=== PATIENT | female | born 2005 | race Two or more races ===

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

== ENCOUNTER 2023-07-25 16:58 | Inpatient (IN) | payer MEDICAID ==
[2023-07-25] VITALS (8 sets, daily range): BP systolic 124–132; BP diastolic 67–73; PULSE 145–149; RESP 20–24; TEMP 98.2–98.6; O2SAT 95–100
[~2023-07-25] VITALS: Ht 165.1 cm; Wt 46.1 kg
[2023-07-25] MEDS ORDERED: SODIUM CHLORIDE 0.9% 2,000 ML IV ONE (17:30)
[2023-07-25 18:18] LABS: Basophils # (auto) 0.1 10 ^3/uL (0-0.2); Basophils % (auto) 0.5 % (0.0-2.0); Eosinophils # (auto) 0.1 10 ^3/uL (0-0.8); Eosinophils % (auto) 0.5 % (0.0-7.0); Hematocrit 51.7 % (36.0-46.0); Hemoglobin 16.7 g/dL (12.2-16.2); Lymphocytes # (auto) 1.4 10 ^3/uL (0.4-5.4); Lymphocytes % (auto) 9.3 % (10.0-50.0); Mean Corpuscular Hemoglobin 32.2 pg (28.0-32.0); Mean Corpuscular Hgb Conc. 32.4 g/dL (32.0-36.0); Mean Corpuscular Volume 99.4 fL (80.0-100.0); Monocytes # (auto) 1.1 10 ^3/uL (0-1.3); Neutrophils # (auto) 12.7 10 ^3/uL (1.6-8.6); Neutrophils % (auto) 82.7 % (37.0-80.0); Nucleated Red Blood Cells % 0.1 %; Red Cell Distribution Width 14.5 % (11.8-14.3); White Blood Cell 15.3 10^3/uL (4.4-10.8)
[2023-07-25 18:48] LABS: Alanine Aminotransferase 13 U/L (7-40); Albumin 5.4 g/dL (3.2-4.8); Alkaline Phosphatase 150 U/L (46-116); Anion Gap 26.00001 (5-15); Aspartate Aminotransferase 16 U/L (13-40); Bilirubin, Total 0.3 mg/dL (0.2-1.0); Blood Urea Nitrogen 7 mg/dL (9-23); Chloride 95 mmol/L (98-107); Potassium 4.9 mmol/L (3.5-5.1); Sodium 131 mmol/L (136-145)
[2023-07-25 19:09] LABS: Carbon Dioxide < 10 mmol/L (20-30); Glucose 713 mg/dL (74-106)
[2023-07-25 19:14] LABS: Lipase 23 U/L (12-53); Magnesium 2.8 mg/dL (1.6-2.6)
[2023-07-25 19:45] LABS: Urine Bacteria NONE SEEN /hpf (None Seen); Urine Blood Negative /uL (Negative); Urine Clarity Clear (Clear); Urine Color Colorless (Yellow); Urine Protein, UAD TRACE (Negative); Urine Specific Gravity 1.032 (1.001-1.035); Urine Urobilinogen Normal (Negative); Urine WBC 1 /hpf (0 - 5)
[2023-07-25] MEDS ORDERED: DEXTROSE (50%) 50ML SYRG IV PRN (20:00)
[2023-07-25] MEDS ORDERED: cefTRIAXone 1GM/50ML D5W 50 ML IV ONE (20:00)
[2023-07-25] MEDS ORDERED: INSULIN LANTUS (GLARGINE) 1 /0.01ml (100units/ml) SC ONE (20:00)
[2023-07-25] MEDS: SODIUM CHLORIDE 0.9% 1,000 ML IV SCH ×2 (20:32→22:40)
[2023-07-25] MEDS: INSULIN DRIP 100 UNIT/100ML 100 ML IV SCH (20:42)
[2023-07-25] MEDS ORDERED: SODIUM BICARBONATE 8.4 % INJ 50ML VIAL IV ONE ×2 (20:45→23:00)
[2023-07-25 20:55] LABS: Magnesium 2.7 mg/dL (1.6-2.6)
[2023-07-25 20:57] LABS: Phosphorus 6.8 mg/dL (2.4-5.1)
[2023-07-25] MEDS ORDERED: MORPHINE SULFATE INJ 2 MG/ml SYRG IV PRN (21:00)
[2023-07-25] MEDS ORDERED: ONDANSETRON HCL 4 MG/2 ML VIAL IV PRN (21:00)
[2023-07-25] MEDS ORDERED: NITROGLYCERIN 0.4 MG SL TAB SL PRN (21:00)
[2023-07-25] MEDS ORDERED: ALBUTEROL MEDNEB 2.5 mg/3ml NEB NEB PRN (21:30)
[2023-07-25] MEDS ORDERED: IPRATROPIUM BROM 0.5 MG/2.5ML INH SOL NEB PRN (21:30)
[2023-07-25 22:02] LABS: Chloride 101 mmol/L (98-107); Potassium 5.2 mmol/L (3.5-5.1); Sodium 136 mmol/L (136-145)
[2023-07-25 22:03] LABS: Anion Gap 25.00001 (5-15)
[2023-07-25 22:08] LABS: BUN/Creatinine Ratio 5.3 (10.0-20.0); Blood Urea Nitrogen 9 mg/dL (9-23)
[2023-07-25] MEDS: ACCU-CHEK COMFORT CURVE STRIP VI SCH ×2 (22:09→22:39)
[2023-07-25 22:31] LABS: Carbon Dioxide < 10 mmol/L (20-30)
[2023-07-25 22:55] LABS: Glucose 675 mg/dL (74-106)
[2023-07-26] VITALS (29 sets, daily range): BP systolic 104–132; BP diastolic 68–92; PULSE 105–140; RESP 12–24; TEMP 98.4–99.1; O2SAT 96–100
[2023-07-26] MEDS: ACCU-CHEK COMFORT CURVE STRIP VI SCH ×15 (00:16→20:00)
[2023-07-26] MEDS ORDERED: SODIUM CHLORIDE 0.9% 1,000 ML IV SCH (01:00)
[2023-07-26 02:22] LABS: Base Excess -13.9 mmol/L (-2.0-2.0)
[2023-07-26] MEDS: SODIUM CHLORIDE 0.9% 1,000 ML IV SCH ×2 (03:00→09:40)
[2023-07-26 03:15] LABS: Hematocrit 46.5 % (36.0-46.0); Hemoglobin 14.9 g/dL (12.2-16.2); Mean Corpuscular Hemoglobin 30.3 pg (28.0-32.0); Mean Corpuscular Volume 94.7 fL (80.0-100.0); Red Blood Cells 4.91 10^6/uL (4.0-5.20); Red Cell Distribution Width 14.4 % (11.8-14.3); White Blood Cell 28.5 10^3/uL (4.4-10.8)
[2023-07-26 03:30] LABS: Alanine Aminotransferase 13 U/L (7-40); Albumin 4.8 g/dL (3.2-4.8); Alkaline Phosphatase 135 U/L (46-116); Anion Gap 23 (5-15); Aspartate Aminotransferase 10 U/L (13-40); BUN/Creatinine Ratio 5.3 (10.0-20.0); Bilirubin, Total 0.3 mg/dL (0.2-1.0); Blood Urea Nitrogen 7 mg/dL (9-23); Calcium 8.7 mg/dL (8.7-10.4); Carbon Dioxide 12 mmol/L (20-30); Potassium 3.9 mmol/L (3.5-5.1); Total Protein 7.9 g/dL (5.7-8.2)
[2023-07-26 04:06] LABS: Chloride 118 mmol/L (98-107); Sodium 153 mmol/L (136-145)
[2023-07-26 04:16] LABS: Basophils % (manual) 0 (0.0-2.0); Blast Cells 0; Eosinophils % (manual) 0 (0-7); Metamyelocytes % 0; Myelocytes % 0; Promyelocytes % 0; Reactive Lymphocytes 0
[2023-07-26 04:54] LABS: Glucose 213 mg/dL (74-106)
[2023-07-26 06:40] LABS: Band Neutrophils % (manual) 4; Lymphocytes % (manual) 8 (10.0-50.0); Monocytes % (manual) 10 (0-12); Platelet Estimate Increased
[2023-07-26 06:40] LABS: Chloride 122 mmol/L (98-107); Potassium 3.7 mmol/L (3.5-5.1); Sodium 153 mmol/L (136-145)
[2023-07-26 06:41] LABS: Anion Gap 18 (5-15); Carbon Dioxide 13 mmol/L (20-30)
[2023-07-26 06:42] LABS: Calcium 8.9 mg/dL (8.5-10.1)
[2023-07-26 06:45] LABS: BUN/Creatinine Ratio 10.7 (10.0-20.0); Blood Urea Nitrogen 13 mg/dL (9-23)
[2023-07-26 06:46] LABS: Glucose 195 mg/dL (74-106)
[2023-07-26] MEDS: PANTOPRAZOLE 40 MG/10 ML VIAL INJ IV SCH (11:05)
[2023-07-26] MEDS: SOD CHL 0.45% WITH 20MEQ KCL 1,000 ML IV SCH ×2 (12:37→18:25)
[2023-07-26] MEDS: INSULIN DRIP 100 UNIT/100ML 100 ML IV SCH (15:52)
[2023-07-26 16:40] LABS: Chloride 120 mmol/L (98-107); Potassium 3.7 mmol/L (3.5-5.1); Sodium 153 mmol/L (136-145)
[2023-07-26 16:41] LABS: Anion Gap 15 (5-15); Carbon Dioxide 18 mmol/L (20-30)
[2023-07-26 16:46] LABS: BUN/Creatinine Ratio 11.5 (10.0-20.0); Blood Urea Nitrogen 13 mg/dL (9-23); Glucose 167 mg/dL (74-106)
[2023-07-26] MEDS: InsuLIN REG 1unit/0.01ml Soln (100units/ml) SC SCH (20:00)
[2023-07-26] MEDS ORDERED: DEXTROSE (50%) 50ML SYRG IV PRN (20:00)
[2023-07-26 20:51] LABS: Chloride 119 mmol/L (98-107); Potassium 3.5 mmol/L (3.5-5.1); Sodium 149 mmol/L (136-145)
[2023-07-26 20:52] LABS: Anion Gap 12 (5-15); Calcium 8.8 mg/dL (8.5-10.1); Carbon Dioxide 18 mmol/L (20-30)
[2023-07-26 20:57] LABS: Blood Urea Nitrogen 12 mg/dL (9-23); Glucose 117 mg/dL (74-106)
[2023-07-27] VITALS (8 sets, daily range): BP systolic 118–131; BP diastolic 74–90; PULSE 76–152; RESP 16–21; TEMP 37; O2SAT 96–100
[2023-07-27] MEDS: InsuLIN REG 1unit/0.01ml Soln (100units/ml) SC SCH ×5 (01:10→16:23)
[2023-07-27] MEDS: ACCU-CHEK COMFORT CURVE STRIP VI SCH ×5 (01:12→16:02)
[2023-07-27 05:06] LABS: Basophils # (auto) 0.1 10 ^3/uL (0-0.2); Basophils % (auto) 0.5 % (0.0-2.0); Eosinophils # (auto) 0.1 10 ^3/uL (0-0.8); Eosinophils % (auto) 0.9 % (0.0-7.0); Hematocrit 38.5 % (36.0-46.0); Hemoglobin 12.8 g/dL (12.2-16.2); Lymphocytes # (auto) 1.5 10 ^3/uL (0.4-5.4); Lymphocytes % (auto) 10.8 % (10.0-50.0); Mean Corpuscular Hemoglobin 30.7 pg (28.0-32.0); Mean Corpuscular Hgb Conc. 33.3 g/dL (32.0-36.0); Monocytes # (auto) 1.1 10 ^3/uL (0-1.3); Monocytes % (auto) 8.2 % (0.0-12.0); Neutrophils % (auto) 79.6 % (37.0-80.0); Red Blood Cells 4.19 10^6/uL (4.0-5.20); Red Cell Distribution Width 14.8 % (11.8-14.3); White Blood Cell 13.7 10^3/uL (4.4-10.8)
[2023-07-27 05:18] LABS: Anion Gap 14 (5-15); Carbon Dioxide 17 mmol/L (20-30); Chloride 114 mmol/L (98-107); Potassium 3.6 mmol/L (3.5-5.1); Sodium 145 mmol/L (136-145)
[2023-07-27 05:19] LABS: Calcium 9.2 mg/dL (8.5-10.1)
[2023-07-27 05:24] LABS: BUN/Creatinine Ratio 12.2 (10.0-20.0); Blood Urea Nitrogen 12 mg/dL (9-23); Glucose 271 mg/dL (74-106)
[2023-07-27] MEDS: PANTOPRAZOLE 40 MG/10 ML VIAL INJ IV SCH (09:21)
[2023-07-27 13:39] LABS: Magnesium 2.1 mg/dL (1.6-2.6)
[2023-07-27] MEDS ORDERED: INSU1INJ19 SC (14:06)
== END 2023-07-27 16:45 | disposition home or self-care (01) | DRG 420 ==
LOC: ER 16:58 → TELE 21:05 → TELE-WESTW 07-26 23:07
PROVIDERS: ADMIT Nurse Practitioner Family; ATTEND Nurse Practitioner Acute Care
DX: E10.10 Type 1 diabetes mellitus with ketoacidosis without coma (principal); R64 Cachexia; R65.10 Systemic inflammatory response syndrome (SIRS) of non-infectious origin without acute organ dysfunction; E86.0 Dehydration; D72.829 Elevated white blood cell count, unspecified; J45.909 Unspecified asthma, uncomplicated; Z82.5 Family history of asthma and other chronic lower respiratory diseases; Z91.148 Patient's other noncompliance with medication regimen for other reason; Z68.1 Body mass index [BMI] 19.9 or less, adult
CPT/HCPCS: 36415; 36600; 71045; 80048; 80053; 81001; 82010; 82805; 82962; 83036; 83690; 83735; 83930; 84100; 84702; 85007; 85025; 85027; 87040; 87081; 93005; 99291; C9113; G0378; J0696; J1815; J2405

== ENCOUNTER 2023-09-29 21:29 | Inpatient (IN) | payer MEDICAID ==
[~2023-09-29] VITALS: Ht 170.2 cm; Wt 53.7 kg
[~2023-09-29 21:29] MED LIST: INSU1INJ19 SC
[2023-09-29] MEDS ORDERED: SODIUM CHLORIDE 0.9% 1,000 ML IV ONE ×3 (22:00→22:45)
[2023-09-29 22:14] LABS: Basophils # (auto) 0.1 10 ^3/uL (0-0.2); Basophils % (auto) 0.3 % (0.0-2.0); Eosinophils # (auto) 0 10 ^3/uL (0-0.8); Mean Corpuscular Volume 100.4 fL (80.0-100.0); White Blood Cell 20.3 10^3/uL (4.4-10.8)
[2023-09-29 22:16] LABS: Eosinophils % (auto) 0.1 % (0.0-7.0); Hematocrit 52.1 % (36.0-46.0); Hemoglobin 15.9 g/dL (12.2-16.2); Lymphocytes # (auto) 1.9 10 ^3/uL (0.4-5.4); Lymphocytes % (auto) 9.4 % (10.0-50.0); Mean Corpuscular Hemoglobin 30.6 pg (28.0-32.0); Mean Corpuscular Hgb Conc. 30.5 g/dL (32.0-36.0); Monocytes % (auto) 9.9 % (0.0-12.0); Neutrophils # (auto) 16.3 10 ^3/uL (1.6-8.6); Neutrophils % (auto) 80.3 % (37.0-80.0); Red Blood Cells 5.19 10^6/uL (4.0-5.20); Red Cell Distribution Width 15.4 % (11.8-14.3)
[2023-09-29 22:34] LABS: Alanine Aminotransferase 12 U/L (7-40); Albumin 4.5 g/dL (3.2-4.8); Alkaline Phosphatase 150 U/L (46-116); Anion Gap 19.00001 (5-15); Aspartate Aminotransferase 14 U/L (13-40); BUN/Creatinine Ratio 5.1 (10.0-20.0); Bilirubin, Total 0.2 mg/dL (0.2-1.0); Blood Urea Nitrogen 7 mg/dL (9-23); Calcium 8.5 mg/dL (8.7-10.4); Chloride 106 mmol/L (98-107); Potassium 4.7 mmol/L (3.5-5.1); Sodium 135 mmol/L (136-145); Total Protein 8.1 g/dL (5.7-8.2)
[2023-09-29 22:40] LABS: Carbon Dioxide < 10 mmol/L (20-30); Glucose 506 mg/dL (74-106)
[2023-09-29] MEDS ORDERED: INSULIN LANTUS (GLARGINE) 1 /0.01ml (100units/ml) SC ONE ×2 (22:45→23:00)
[2023-09-29] MEDS ORDERED: INSULIN DRIP 100 UNIT/100ML 100 ML IV SCH ×2 (22:45→23:00)
[2023-09-29] MEDS ORDERED: DEXTROSE (50%) 50ML SYRG IV PRN ×2 (22:45→23:00)
[2023-09-29] MEDS ORDERED: InsuLIN REG 1unit/0.01ml Soln (100units/ml) ONE (23:43)
[2023-09-29 23:45] VITALS: O2SAT 100
[2023-09-30] MEDS ORDERED: cefTRIAXone 1GM/50ML D5W 50 ML IV ONE
[2023-09-30] MEDS ORDERED: ACCU-CHEK COMFORT CURVE STRIP VI SCH
[2023-09-30] MEDS ORDERED: ONDANSETRON HCL 4 MG/2 ML VIAL IV PRN (01:00)
[2023-09-30] MEDS ORDERED: SODIUM CHLORIDE 0.9% 1,000 ML IV SCH (01:00)
[2023-09-30] MEDS ORDERED: HYDROcodone-ACET 5/325MG TAB PO PRN (01:00)
[2023-09-30] MEDS ORDERED: DOCUSATE SOD 100 MG CAP PO PRN (01:00)
[2023-09-30] MEDS ORDERED: ACETAMINOPHEN 325 MG TAB PO PRN (01:00)
[2023-09-30] MEDS ORDERED: MORPHINE SULFATE INJ 2 MG/ml SYRG IV PRN (01:00)
[2023-09-30] MEDS ORDERED: NITROGLYCERIN 0.4 MG SL TAB SL PRN (01:00)
[2023-09-30] MEDS: ACCU-CHEK COMFORT CURVE STRIP VI SCH ×13 (01:57→21:54)
[2023-09-30] MEDS ORDERED: D5W 5% 1,000 ML IV ONE (04:00)
[2023-09-30 04:52] LABS: Potassium 3.6 mmol/L (3.5-5.1)
[2023-09-30 04:53] LABS: Anion Gap 16.00001 (5-15)
[2023-09-30 04:54] LABS: Calcium 7.6 mg/dL (8.7-10.4)
[2023-09-30 04:58] LABS: Glucose 136 mg/dL (74-106)
[2023-09-30 04:59] LABS: BUN/Creatinine Ratio 7.8 (10.0-20.0); Blood Urea Nitrogen 7 mg/dL (9-23); Chloride 120 mmol/L (98-107); Sodium 146 mmol/L (136-145)
[2023-09-30 05:01] LABS: Carbon Dioxide < 10 mmol/L (20-30)
[2023-09-30] MEDS ORDERED: SODIUM BICARBONATE 8.4 % INJ 50ML VIAL IV ONE (05:30)
[2023-09-30 07:47] VITALS: PULSE 99; RESP 10; O2SAT 98
[2023-09-30] MEDS ORDERED: INSULIN LANTUS (GLARGINE) 1 /0.01ml (100units/ml) SC SCH ×2 (10:00→22:00)
[2023-09-30] MEDS: ENOXAPARIN SOD 40 MG/0.4 ML SYRINGE SC SCH (10:15)
[2023-09-30] MEDS: D5W/SOD CHL 0.45%/KCL 20MEQ 1,000 ML IV SCH ×2 (11:50→14:24)
[2023-09-30 14:32] LABS: Chloride 116 mmol/L (98-107); Potassium 2.9 mmol/L (3.5-5.1); Sodium 146 mmol/L (136-145)
[2023-09-30 14:33] LABS: Anion Gap 10 (5-15); Calcium 7.4 mg/dL (8.7-10.4); Carbon Dioxide 20 mmol/L (20-30)
[2023-09-30 14:38] LABS: BUN/Creatinine Ratio 16.7 (10.0-20.0); Blood Urea Nitrogen 12 mg/dL (9-23); Glucose 91 mg/dL (74-106)
[2023-09-30 14:39] LABS: Magnesium 1.6 mg/dL (1.6-2.6)
[2023-09-30 14:40] LABS: Phosphorus 1.3 mg/dL (2.4-5.1)
[2023-09-30] MEDS ORDERED: DEXTROSE (50%) 50ML SYRG IV PRN (17:15)
[2023-09-30] MEDS: SOD CHL 0.45% WITH 20MEQ KCL 1,000 ML IV SCH (17:30)
[2023-09-30 20:00] VITALS: PULSE 107; RESP 12; O2SAT 100
[2023-09-30] MEDS ORDERED: cefTRIAXone 1GM/50ML D5W 50 ML IV SCH (21:00)
[2023-09-30] MEDS: InsuLIN REG 1unit/0.01ml Soln (100units/ml) SC SCH (22:01)
[2023-10-01] VITALS (8 sets, daily range): BP systolic 97–143; BP diastolic 44–88; PULSE 69–100; RESP 16–20; TEMP 98–98.4; O2SAT 95–100
[2023-10-01] MEDS: SOD CHL 0.45% WITH 20MEQ KCL 1,000 ML IV SCH ×2 (02:35→09:34)
[2023-10-01] MEDS: ACCU-CHEK COMFORT CURVE STRIP VI SCH ×2 (06:14→12:38)
[2023-10-01] MEDS: InsuLIN REG 1unit/0.01ml Soln (100units/ml) SC SCH ×2 (07:00→12:36)
[2023-10-01 07:27] LABS: Basophils # (auto) 0 10 ^3/uL (0-0.2); Eosinophils # (auto) 0.1 10 ^3/uL (0-0.8); Lymphocytes # (auto) 1.7 10 ^3/uL (0.4-5.4); Lymphocytes % (auto) 19.7 % (10.0-50.0); Monocytes # (auto) 1.3 10 ^3/uL (0-1.3); Nucleated Red Blood Cells % 0.1 %
[2023-10-01 07:30] LABS: Basophils % (auto) 0.4 % (0.0-2.0); Hematocrit 35.5 % (36.0-46.0); Mean Corpuscular Hgb Conc. 33.7 g/dL (32.0-36.0); Monocytes % (auto) 15.2 % (0.0-12.0); Neutrophils # (auto) 5.4 10 ^3/uL (1.6-8.6); Neutrophils % (auto) 63.7 % (37.0-80.0); Red Blood Cells 3.86 10^6/uL (4.0-5.20); Red Cell Distribution Width 14.4 % (11.8-14.3); White Blood Cell 8.5 10^3/uL (4.4-10.8)
[2023-10-01 07:36] LABS: Albumin 3.2 g/dL (3.2-4.8); Alkaline Phosphatase 93 U/L (46-116); Anion Gap 7 (5-15); Aspartate Aminotransferase 13 U/L (13-40); Bilirubin, Total 0.2 mg/dL (0.2-1.0); Blood Urea Nitrogen 6 mg/dL (9-23); Calcium 7.9 mg/dL (8.7-10.4); Carbon Dioxide 22 mmol/L (20-30); Chloride 112 mmol/L (98-107); Glucose 59 mg/dL (74-106); Potassium 2.9 mmol/L (3.5-5.1); Sodium 141 mmol/L (136-145); Total Protein 5.6 g/dL (5.7-8.2)
[2023-10-01 07:39] LABS: Alanine Aminotransferase < 9 U/L (7-40)
[2023-10-01] MEDS ORDERED: MAGNESIUM OXIDE 400 MG TAB PO ONE (08:30)
[2023-10-01] MEDS ORDERED: POTASSIUM PHOSPHATE 44 MEQ in D5W 5% 250 ML IV ONE (08:30)
[2023-10-01 09:17] LABS: Urine Bacteria FEW /hpf (None Seen); Urine Blood 3+ /uL (Negative); Urine Clarity HAZY (Clear); Urine Color Colorless (Yellow); Urine Protein, UAD Negative (Negative); Urine Specific Gravity 1.006 (1.001-1.035); Urine Urobilinogen Normal (Negative); Urine WBC 9 /hpf (0 - 5); Urine pH 5.5 (5.0-8.0)
[2023-10-01] MEDS: ENOXAPARIN SOD 40 MG/0.4 ML SYRINGE SC SCH (09:34)
[2023-10-01 14:21] LABS: Potassium 3.3 mmol/L (3.5-5.1)
[2023-10-01 14:28] LABS: Magnesium 1.7 mg/dL (1.6-2.6)
[2023-10-01] MEDS ORDERED: POTASSIUM EFFERVESENT TAB 25 MEQ PO ONE (15:30)
== END 2023-10-01 16:55 | disposition home or self-care (01) | DRG 420 ==
LOC: ER 21:29 → TELE-EAST 09-30 00:59 → TELE 09-30 00:59 → TELE-EAST 09-30 23:40
PROVIDERS: ADMIT Nurse Practitioner Family; ATTEND Nurse Practitioner Family
DX: E11.10 Type 2 diabetes mellitus with ketoacidosis without coma (principal); N17.0 Acute kidney failure with tubular necrosis; R64 Cachexia; R65.10 Systemic inflammatory response syndrome (SIRS) of non-infectious origin without acute organ dysfunction; E87.6 Hypokalemia; D75.839 Thrombocytosis, unspecified; Z68.1 Body mass index [BMI] 19.9 or less, adult; Z82.5 Family history of asthma and other chronic lower respiratory diseases
CPT/HCPCS: 36415; 36600; 71045; 80048; 80053; 81001; 82010; 82805; 82962; 83036; 83735; 84100; 84132; 84702; 85025; G0378; J1815; J7060

== ENCOUNTER 2023-10-28 12:31 | Inpatient (IN) | payer MEDICAID ==
[~2023-10-28] VITALS: Ht 170.2 cm; Wt 49.0 kg
[2023-10-28 13:10] VITALS: PULSE 128; RESP 22; O2SAT 99
[2023-10-28] MEDS: SODIUM BICARB 8.4% 50Meq/50ml SYR Vial IV ONE ×2 (13:47→16:08)
[2023-10-28] MEDS: SODIUM CHLORIDE 0.9% 3,000 ML IV ONE (13:47)
[2023-10-28] MEDS ORDERED: SODIUM CHLORIDE 0.9% 1,000 ML IVB ONE (14:00)
[2023-10-28 14:11] LABS: Red Blood Cells 4.48 10^6/uL (4.0-5.20)
[2023-10-28 14:12] LABS: Hematocrit 46.7 % (36.0-46.0); Hemoglobin 14.2 g/dL (12.2-16.2); Mean Corpuscular Hemoglobin 31.7 pg (28.0-32.0); Mean Corpuscular Hgb Conc. 30.3 g/dL (32.0-36.0); Mean Corpuscular Volume 104.3 fL (80.0-100.0); Red Cell Distribution Width 16.8 % (11.8-14.3)
[2023-10-28 14:24] LABS: White Blood Cell 32.1 10^3/uL (4.4-10.8)
[2023-10-28 14:25] LABS: Basophils % (manual) 0 (0.0-2.0); Blast Cells 0; Eosinophils % (manual) 0 (0-7); Metamyelocytes % 0; Myelocytes % 0; Promyelocytes % 0; Reactive Lymphocytes 0
[2023-10-28 14:30] LABS: Alanine Aminotransferase 13 U/L (7-40); Albumin 4.4 g/dL (3.2-4.8); Alkaline Phosphatase 183 U/L (46-116); Anion Gap 18.00001 (5-15); Aspartate Aminotransferase 13 U/L (13-40); BUN/Creatinine Ratio 7.8 (10.0-20.0); Blood Urea Nitrogen 10 mg/dL (9-23); Calcium 8.5 mg/dL (8.7-10.4); Chloride 107 mmol/L (98-107); Lipase 21 U/L (12-53); Magnesium 2.3 mg/dL (1.6-2.6); Potassium 4.6 mmol/L (3.5-5.1); Sodium 135 mmol/L (136-145); Total Protein 7.7 g/dL (5.7-8.2)
[2023-10-28 14:31] LABS: Bilirubin, Total 0.2 mg/dL (0.2-1.0)
[2023-10-28 14:45] LABS: Carbon Dioxide < 10 mmol/L (20-30); Glucose 568 mg/dL (74-106)
[2023-10-28 14:49] LABS: Band Neutrophils % (manual) 13; Lymphocytes % (manual) 7 (10.0-50.0); Monocytes % (manual) 3 (0-12)
[2023-10-28 14:50] LABS: Platelet Estimate Increased
[2023-10-28 15:07] LABS: Urine Bacteria FEW /hpf (None Seen); Urine Blood 1+ /uL (Negative); Urine Clarity Clear (Clear); Urine Color Colorless (Yellow); Urine Mucus FEW (None Seen); Urine Protein, UAD 1+ (Negative); Urine Specific Gravity 1.022 (1.001-1.035); Urine Urobilinogen Normal (Negative); Urine WBC 1 /hpf (0 - 5); Urine pH 5.5 (5.0-8.0)
[2023-10-28] MEDS ORDERED: DEXTROSE (50%) 50ML SYRG IV PRN ×2 (16:00→17:15)
[2023-10-28] MEDS: InsuLIN REG 1unit/0.01ml Soln (100units/ml) IV ONE (16:03)
[2023-10-28] MEDS: ONDANSETRON HCL 4 MG/2 ML VIAL IV ONE (16:08)
[2023-10-28 16:50] LABS: Chloride 115 mmol/L (98-107); Potassium 4.6 mmol/L (3.5-5.1); Sodium 143 mmol/L (136-145)
[2023-10-28 16:51] LABS: Anion Gap 18.00001 (5-15); Calcium 6.9 mg/dL (8.5-10.1)
[2023-10-28 16:56] LABS: BUN/Creatinine Ratio 9.2 (10.0-20.0); Blood Urea Nitrogen 10 mg/dL (9-23)
[2023-10-28] MEDS: SODIUM CHLORIDE 0.9% IV ONE (16:56)
[2023-10-28] MEDS: SODIUM BICARB IV ONE (16:56)
[2023-10-28] MEDS: ACCU-CHEK COMFORT CURVE STRIP VI SCH ×2 (17:00→18:46)
[2023-10-28 17:02] LABS: Carbon Dioxide < 10 mmol/L (20-30); Glucose 431 mg/dL (74-106)
[2023-10-28] MEDS: INSULIN DRIP 100 UNIT/100ML 100 ML IV SCH (17:10)
[2023-10-28] MEDS ORDERED: DOCUSATE SOD 100 MG CAP PO PRN (17:15)
[2023-10-28] MEDS ORDERED: MORPHINE SULFATE INJ 2 MG/ml SYRG IV PRN (17:15)
[2023-10-28] MEDS ORDERED: SODIUM CHLORIDE 0.9% 1,000 ML IV SCH ×3 (17:15→23:15)
[2023-10-28] MEDS ORDERED: ONDANSETRON HCL 4 MG/2 ML VIAL IV PRN (17:15)
[2023-10-28] MEDS: cefTRIAXone 1GM/50ML D5W 50 ML IV ONE (17:43)
[2023-10-28] MEDS: INSULIN LANTUS (GLARGINE) 1 /0.01ml (100units/ml) SC ONE (17:43)
[2023-10-28] MEDS: SOD CHL 0.45% 1,000 ML IV SCH (17:46)
[2023-10-28 18:07] LABS: Chloride 116 mmol/L (98-107); Potassium 4.2 mmol/L (3.5-5.1); Sodium 144 mmol/L (136-145)
[2023-10-28 18:08] LABS: Anion Gap 18.00001 (5-15); Calcium 7.2 mg/dL (8.7-10.4)
[2023-10-28 18:13] LABS: Blood Urea Nitrogen 9 mg/dL (9-23); Glucose 345 mg/dL (74-106)
[2023-10-28 18:14] LABS: Magnesium 1.9 mg/dL (1.6-2.6)
[2023-10-28 18:37] LABS: Carbon Dioxide < 10 mmol/L (20-30)
[2023-10-28] MEDS: CALCIUM GLUC 1,000mg/50ml-NS 50 ML IV ONE (18:42)
[2023-10-28] MEDS: D5W/SOD CHL 0.45% 1,000 ML IV SCH (19:08)
[2023-10-28 19:30] VITALS: PULSE 109; RESP 18; O2SAT 99
[2023-10-28 21:40] VITALS: BP 122/76; PULSE 105; RESP 13; TEMP 98.1; O2SAT 100
[2023-10-28 21:55] LABS: Chloride 118 mmol/L (98-107); Potassium 3.2 mmol/L (3.5-5.1); Sodium 145 mmol/L (136-145)
[2023-10-28 21:56] LABS: Anion Gap 17.00001 (5-15)
[2023-10-28 21:57] LABS: Calcium 7.2 mg/dL (8.5-10.1)
[2023-10-28 22:00] VITALS: BP 119/79; PULSE 101; RESP 11; O2SAT 100
[2023-10-28 22:02] LABS: BUN/Creatinine Ratio 9.5 (10.0-20.0); Blood Urea Nitrogen 8 mg/dL (9-23); Glucose 134 mg/dL (74-106)
[2023-10-28 22:04] LABS: Carbon Dioxide < 10 mmol/L (20-30)
[2023-10-28 23:00] VITALS: BP 121/81; PULSE 101; RESP 11; O2SAT 100
[2023-10-28] MEDS ORDERED: SOD CHL 0.45% 1,000 ML IV SCH (23:15)
[2023-10-29] VITALS (18 sets, daily range): BP systolic 105–121; BP diastolic 61–80; PULSE 85–120; RESP 10–24; TEMP 98.2–98.6; O2SAT 96–100
[2023-10-29 00:41] LABS: Chloride 116 mmol/L (98-107); Sodium 145 mmol/L (136-145)
[2023-10-29 00:42] LABS: Calcium 7.6 mg/dL (8.7-10.4); Carbon Dioxide 15 mmol/L (20-30)
[2023-10-29 00:47] LABS: BUN/Creatinine Ratio 11.1 (10.0-20.0); Blood Urea Nitrogen 9 mg/dL (9-23); Glucose 132 mg/dL (74-106)
[2023-10-29 01:01] LABS: Anion Gap 14 (5-15)
[2023-10-29] MEDS ORDERED: POTASSIUM CHL 20MEQ/100ML 100 ML IV SCH (01:15)
[2023-10-29] MEDS: POTASSIUM CHL 20MEQ/100ML 100 ML IV SCH (01:37)
[2023-10-29 06:09] LABS: Hematocrit 35.7 % (36.0-46.0); Mean Corpuscular Hemoglobin 30.8 pg (28.0-32.0); Mean Corpuscular Hgb Conc. 33.6 g/dL (32.0-36.0); Mean Corpuscular Volume 91.9 fL (80.0-100.0); Red Blood Cells 3.88 10^6/uL (4.0-5.20); Red Cell Distribution Width 15.6 % (11.8-14.3); White Blood Cell 16.1 10^3/uL (4.4-10.8)
[2023-10-29 06:44] LABS: Basophils % (manual) 0 (0.0-2.0); Blast Cells 0; Eosinophils % (manual) 0 (0-7); Reactive Lymphocytes 0
[2023-10-29 07:16] LABS: Alanine Aminotransferase 10 U/L (7-40); Albumin 3.2 g/dL (3.2-4.8); Alkaline Phosphatase 96 U/L (46-116); Anion Gap 10 (5-15); Aspartate Aminotransferase 9 U/L (13-40); BUN/Creatinine Ratio 14.7 (10.0-20.0); Bilirubin, Total 0.2 mg/dL (0.2-1.0); Blood Urea Nitrogen 10 mg/dL (9-23); Calcium 7.1 mg/dL (8.7-10.4); Carbon Dioxide 19 mmol/L (20-30); Chloride 116 mmol/L (98-107); Glucose 162 mg/dL (74-106); Sodium 145 mmol/L (136-145)
[2023-10-29 07:17] LABS: Total Protein 5.5 g/dL (5.7-8.2)
[2023-10-29] MEDS: cefTRIAXone 1GM/50ML D5W 50 ML IV SCH (07:23)
[2023-10-29] MEDS: INSULIN LANTUS (GLARGINE) 1 /0.01ml (100units/ml) SC SCH (07:30)
[2023-10-29 08:10] LABS: Band Neutrophils % (manual) 8; Lymphocytes % (manual) 7 (10.0-50.0); Metamyelocytes % 1; Monocytes % (manual) 8 (0-12); Myelocytes % 1; Promyelocytes % 2
[2023-10-29 08:11] LABS: Toxic Granulation Slight
[2023-10-29 08:12] LABS: Platelet Estimate Adequate
[2023-10-29] MEDS: POTASSIUM CHL 20 Meq TABLET PO ONE (10:14)
[2023-10-29 12:40] LABS: Chloride 114 mmol/L (98-107); Potassium 2.8 mmol/L (3.5-5.1); Sodium 140 mmol/L (136-145)
[2023-10-29 12:41] LABS: Anion Gap 7 (5-15); Calcium 7.3 mg/dL (8.7-10.4); Carbon Dioxide 19 mmol/L (20-30)
[2023-10-29 12:46] LABS: BUN/Creatinine Ratio 13.2 (10.0-20.0); Blood Urea Nitrogen 7 mg/dL (9-23); Glucose 104 mg/dL (74-106)
[2023-10-29] MEDS: POTASSIUM EFFERVESENT TAB 25 MEQ PO ONE (14:08)
[2023-10-29] MEDS: INSULIN LANTUS (GLARGINE) 1 /0.01ml (100units/ml) SC ONE (16:10)
[2023-10-29] MEDS ORDERED: DEXTROSE (50%) 50ML SYRG IV PRN (16:45)
[2023-10-29] MEDS: ACCU-CHEK COMFORT CURVE STRIP VI SCH (17:53)
[2023-10-29] MEDS: InsuLIN REG 1unit/0.01ml Soln (100units/ml) SC SCH (17:59)
[2023-10-29 18:42] LABS: Chloride 110 mmol/L (98-107); Sodium 142 mmol/L (136-145)
[2023-10-29 18:43] LABS: Anion Gap 9 (5-15); Carbon Dioxide 23 mmol/L (20-30)
[2023-10-29 18:44] LABS: Calcium 7.9 mg/dL (8.5-10.1)
[2023-10-29 18:48] LABS: BUN/Creatinine Ratio 16.3 (10.0-20.0); Blood Urea Nitrogen 8 mg/dL (9-23); Glucose 59 mg/dL (74-106)
[2023-10-30] VITALS (19 sets, daily range): BP systolic 96–120; BP diastolic 55–75; PULSE 77–118; RESP 12–28; TEMP 97.2–98.5; O2SAT 96–98
[2023-10-30 04:43] LABS: Hematocrit 33.5 % (36.0-46.0); Hemoglobin 11.4 g/dL (12.2-16.2); Mean Corpuscular Hemoglobin 31.1 pg (28.0-32.0); Mean Corpuscular Volume 91.5 fL (80.0-100.0); Red Blood Cells 3.66 10^6/uL (4.0-5.20); White Blood Cell 6.4 10^3/uL (4.4-10.8)
[2023-10-30 04:51] LABS: Band Neutrophils % (manual) 0; Basophils % (manual) 0 (0.0-2.0); Blast Cells 0; Metamyelocytes % 0; Myelocytes % 0; Promyelocytes % 0; Reactive Lymphocytes 0
[2023-10-30 04:53] LABS: Chloride 111 mmol/L (98-107); Potassium 2.9 mmol/L (3.5-5.1); Sodium 143 mmol/L (136-145)
[2023-10-30 04:54] LABS: Anion Gap 5 (5-15); Calcium 8.1 mg/dL (8.7-10.4); Carbon Dioxide 27 mmol/L (20-30)
[2023-10-30 04:59] LABS: Glucose 74 mg/dL (74-106)
[2023-10-30 05:00] LABS: BUN/Creatinine Ratio 16.7 (10.0-20.0); Blood Urea Nitrogen 7 mg/dL (9-23); Magnesium 1.5 mg/dL (1.6-2.6)
[2023-10-30 05:27] LABS: Eosinophils % (manual) 3 (0-7); Lymphocytes % (manual) 19 (10.0-50.0); Monocytes % (manual) 14 (0-12); Platelet Estimate Adequate
[2023-10-30] MEDS: POTASSIUM CHL 20MEQ/100ML 100 ML IV SCH (08:00)
[2023-10-30] MEDS ORDERED: POTASSIUM CHLORIDE 40 MEQ, LIDOCAINE 1% (LOCAL ANESTH.) 4 ML in SODIUM CHL 0.9% 250 ML IV ONE (10:15)
[2023-10-30] MEDS: INSULIN LANTUS (GLARGINE) 1 /0.01ml (100units/ml) SC SCH (10:34)
[2023-10-30] MEDS: MAGNESIUM SULFATE 1GM/100ML 100 ML IV SCH (12:42)
[2023-10-30] MEDS: POTASSIUM CHL 20 Meq TABLET PO ONE (12:42)
[2023-10-30] MEDS ORDERED: POTASSIUM CHL 20 Meq TABLET PO ONE ×2 (14:00→15:00)
[2023-10-30] MEDS: POTASSIUM CHLORIDE 40 MEQ, LIDOCAINE 1% (LOCAL ANESTH.) 4 ML in SODIUM CHL 0.9% 250 ML IV ONE (14:52)
[2023-10-31 05:00] VITALS: BP 109/76; PULSE 76; RESP 17; TEMP 97; O2SAT 98
[2023-10-31 06:05] LABS: Anion Gap 4 (5-15); Carbon Dioxide 30 mmol/L (20-30); Chloride 106 mmol/L (98-107); Potassium 3.6 mmol/L (3.5-5.1); Sodium 140 mmol/L (136-145)
[2023-10-31 06:06] LABS: Calcium 8.6 mg/dL (8.7-10.4)
[2023-10-31 06:11] LABS: BUN/Creatinine Ratio 15.8 (10.0-20.0); Blood Urea Nitrogen 6 mg/dL (9-23); Glucose 96 mg/dL (74-106); Magnesium 1.8 mg/dL (1.6-2.6)
[2023-10-31 08:00] VITALS: PULSE 90; PULSE 91; RESP 17; O2SAT 100
[2023-10-31 08:30] VITALS: BP 112/74; PULSE 90; RESP 17; TEMP 97.4; O2SAT 100
[2023-10-31] MEDS ORDERED: INSU100I4 SC (11:39)
[2023-10-31] MEDS ORDERED: INSU1INJ19 SC (11:39)
[2023-10-31 12:31] VITALS: BP 126/90; PULSE 74; RESP 18; TEMP 97.6; O2SAT 100
[2023-10-31 12:43] VITALS: BP 126/90; PULSE 74; RESP 18; TEMP 97.8; O2SAT 100
== END 2023-10-31 14:08 | disposition home or self-care (01) | DRG 420 ==
LOC: EDBD 12:31 → ER 12:31 → EDUNIT# 12:31 → TELE 17:17 → DOU IN ICU 21:00 → TELE-WESTW 10-30 17:12
PROVIDERS: ADMIT Nurse Practitioner Family; ATTEND Internal Medicine
DX: E10.10 Type 1 diabetes mellitus with ketoacidosis without coma (principal); N17.0 Acute kidney failure with tubular necrosis; R65.10 Systemic inflammatory response syndrome (SIRS) of non-infectious origin without acute organ dysfunction; E83.51 Hypocalcemia; E86.0 Dehydration; Z20.822 Contact with and (suspected) exposure to COVID-19; R00.0 Tachycardia, unspecified; E87.6 Hypokalemia; Z79.4 Long term (current) use of insulin; Z82.5 Family history of asthma and other chronic lower respiratory diseases; Z91.148 Patient's other noncompliance with medication regimen for other reason; Z91.199 Patient's noncompliance with other medical treatment and regimen due to unspecified reason
CPT/HCPCS: 36415; 36600; 71045; 80048; 80053; 81001; 82010; 82805; 82962; 83605; 83690; 83735; 83930; 84100; 84702; 85007; 85027; 87040; 87081; 87086; 93005; 99291; G0378; J1815; J2001; J2405; J3480

== ENCOUNTER 2023-12-11 15:10 | Inpatient (IN) | payer MEDICAID ==
[~2023-12-11] VITALS: Ht 172.7 cm; Wt 57.6 kg
[~2023-12-11 15:10] MED LIST changes: +INSU100I4 SC
[2023-12-11 16:02] LABS: Urine Bacteria None Seen /hpf (None Seen)
[2023-12-11 16:14] LABS: Urine Blood Negative /uL (Negative); Urine Clarity Clear (Clear); Urine Color Colorless (Yellow); Urine Mucus FEW (None Seen); Urine Protein, UAD 1+ (Negative); Urine Specific Gravity 1.031 (1.001-1.035); Urine Urobilinogen Normal (Negative); Urine WBC <1 /hpf (0 - 5)
[2023-12-11 16:33] VITALS: PULSE 125; RESP 20; O2SAT 99
[2023-12-11 17:28] LABS: Hemoglobin 16.1 g/dL (12.2-16.2); Mean Corpuscular Hemoglobin 29.4 pg (28.0-32.0); Mean Corpuscular Hgb Conc. 30.4 g/dL (32.0-36.0); Red Blood Cells 5.47 10^6/uL (4.0-5.20); Red Cell Distribution Width 16.1 % (11.8-14.3)
[2023-12-11 17:31] LABS: Chloride 107 mmol/L (98-107); Potassium 5.2 mmol/L (3.5-5.1); Sodium 137 mmol/L (136-145); White Blood Cell 33.6 10^3/uL (4.4-10.8)
[2023-12-11 17:32] LABS: Anion Gap 20.00001 (5-15)
[2023-12-11 17:33] LABS: Basophils % (manual) 0 (0.0-2.0); Blast Cells 0; Calcium 9.9 mg/dL (8.5-10.1); Eosinophils % (manual) 0 (0-7); Myelocytes % 0; Promyelocytes % 0; Reactive Lymphocytes 0
[2023-12-11 17:38] LABS: BUN/Creatinine Ratio 7.2 (10.0-20.0); Blood Urea Nitrogen 11 mg/dL (9-23)
[2023-12-11 17:43] LABS: Carbon Dioxide < 10 mmol/L (20-30); Glucose 601 mg/dL (74-106)
[2023-12-11] MEDS ORDERED: DEXTROSE (50%) 50ML SYRG IV PRN (17:45)
[2023-12-11] MEDS: INSULIN LANTUS (GLARGINE) 1 /0.01ml (100units/ml) SC ONE (17:59)
[2023-12-11] MEDS: ACCU-CHEK COMFORT CURVE STRIP VI SCH ×2 (18:00→19:30)
[2023-12-11] MEDS: INSULIN DRIP 100 UNIT/100ML 100 ML IV SCH (18:04)
[2023-12-11 18:33] LABS: Lactic Acid w/Reflex 2.5 mmol/L (0.4-2.0)
[2023-12-11] MEDS ORDERED: ACETAMINOPHEN 325 MG TAB PO PRN (18:45)
[2023-12-11] MEDS ORDERED: POTASSIUM CHL 20MEQ/100ML 200 ML IV PRN (18:45)
[2023-12-11 18:48] LABS: Band Neutrophils % (manual) 4; Lymphocytes % (manual) 4 (10.0-50.0); Metamyelocytes % 1; Monocytes % (manual) 7 (0-12)
[2023-12-11 18:50] LABS: Anisocytosis Slight; Platelet Estimate Increased
[2023-12-11] MEDS: SODIUM CHLORIDE 0.9% 1,500 ML IV ONE (19:00)
[2023-12-11 19:33] LABS: Amphetamine Screen, Urine Neg (NEGATIVE); Barbiturate Scree,Urine Neg (NEGATIVE); Benzodiazephine Screen, Urine Neg (NEGATIVE); Cocaine Screen, Urine Neg (NEGATIVE); Opiate Scree,Urine Neg (NEGATIVE); Phencyclidine Screen, Urine Neg (NEGATIVE)
[2023-12-11 19:34] LABS: Cannabinoid Screen, Urine Neg (NEGATIVE)
[2023-12-11 19:35] VITALS: PULSE 130; RESP 15; O2SAT 98
[2023-12-11 20:03] LABS: Partial Thromboplastin Time 30.7 SEC (24.5-34.5); Prothrombin Time 10.5 sec (9.3-11.8)
[2023-12-11] MEDS: PIPERACILLIN-TAZOB 3.375GM 100 ML IV ONE (20:10)
[2023-12-11 20:21] LABS: Magnesium 2.7 mg/dL (1.6-2.6)
[2023-12-11 20:22] LABS: Phosphorus 3.8 mg/dL (2.4-5.1)
[2023-12-11] MEDS: SODIUM CHLORIDE 0.9% 1,000 ML IV SCH (20:30)
[2023-12-11 20:33] LABS: Blood Alcohol 8.3 mg/dL (<10)
[2023-12-11] MEDS: ONDANSETRON HCL 4 MG/2 ML VIAL IV ONE (20:43)
[2023-12-11] MEDS: HYDROmorphone HCL 2 MG/ML VL/or syr IV ONE (20:44)
[2023-12-11] MEDS ORDERED: MORPHINE SULFATE INJ 2 MG/ml SYRG IV PRN ×2 (22:15→22:30)
[2023-12-11] MEDS ORDERED: DOCUSATE SOD 100 MG CAP PO PRN ×2 (22:15→22:30)
[2023-12-11] MEDS ORDERED: ONDANSETRON HCL 4 MG/2 ML VIAL IV PRN ×2 (22:15→22:30)
[2023-12-11] MEDS ORDERED: NITROGLYCERIN 0.4 MG SL TAB SL PRN ×2 (22:15→22:30)
[2023-12-11] MEDS: VANCOMYCIN 1GM/200ML 200 ML IV ONE ×2 (23:08→23:15)
[2023-12-12] VITALS (7 sets, daily range): BP systolic 122–125; BP diastolic 77–78; PULSE 80–115; RESP 13–18; TEMP 98.1; O2SAT 95–100
[2023-12-12 00:51] LABS: Potassium 3.9 mmol/L (3.5-5.1); Sodium 144 mmol/L (136-145)
[2023-12-12 00:52] LABS: Anion Gap 12 (5-15); Calcium 8.6 mg/dL (8.7-10.4); Carbon Dioxide 12 mmol/L (20-30)
[2023-12-12 00:57] LABS: BUN/Creatinine Ratio 12.2 (10.0-20.0); Blood Urea Nitrogen 12 mg/dL (9-23); Glucose 171 mg/dL (74-106)
[2023-12-12 00:59] LABS: Chloride 120 mmol/L (98-107)
[2023-12-12] MEDS: LORazepam 2MG/ML-1ML VIAL IV PRN (01:22)
[2023-12-12] MEDS: LORazepam 2MG/ML-1ML VIAL ONE (01:29)
[2023-12-12] MEDS: SODIUM CHLORIDE 0.9% 1,000 ML IV SCH ×2 (01:30→05:20)
[2023-12-12] MEDS ORDERED: SODIUM CHLORIDE 0.9% 1,000 ML IV SCH ×2 (02:15→04:15)
[2023-12-12] MEDS ORDERED: PIPERACILLIN-TAZOB 3.375GM 100 ML IV SCH (04:00)
[2023-12-12 04:20] LABS: Basophils # (auto) 0 10 ^3/uL (0-0.2); Basophils % (auto) 0.1 % (0.0-2.0); Eosinophils # (auto) 0 10 ^3/uL (0-0.8); Hematocrit 40.5 % (36.0-46.0); Lymphocytes # (auto) 1.5 10 ^3/uL (0.4-5.4); Lymphocytes % (auto) 6.6 % (10.0-50.0); Mean Corpuscular Hemoglobin 29.4 pg (28.0-32.0); Mean Corpuscular Hgb Conc. 32.1 g/dL (32.0-36.0); Mean Corpuscular Volume 91.5 fL (80.0-100.0); Monocytes # (auto) 2.7 10 ^3/uL (0-1.3); Monocytes % (auto) 11.8 % (0.0-12.0); Neutrophils # (auto) 18.8 10 ^3/uL (1.6-8.6); Neutrophils % (auto) 81.5 % (37.0-80.0); Red Blood Cells 4.43 10^6/uL (4.0-5.20); Red Cell Distribution Width 16.2 % (11.8-14.3); White Blood Cell 23.1 10^3/uL (4.4-10.8)
[2023-12-12 04:40] LABS: Alanine Aminotransferase 10 U/L (7-40); Albumin 3.8 g/dL (3.2-4.8); Alkaline Phosphatase 119 U/L (46-116); Anion Gap 12 (5-15); Aspartate Aminotransferase < 8 U/L (13-40); BUN/Creatinine Ratio 10.6 (10.0-20.0); Blood Urea Nitrogen 10 mg/dL (9-23); Calcium 8.8 mg/dL (8.7-10.4); Carbon Dioxide 13 mmol/L (20-30); Chloride 121 mmol/L (98-107); Glucose 173 mg/dL (74-106); Potassium 3.9 mmol/L (3.5-5.1); Sodium 146 mmol/L (136-145)
[2023-12-12 04:41] LABS: Bilirubin, Total 0.2 mg/dL (0.2-1.0); Total Protein 6.8 g/dL (5.7-8.2)
[2023-12-12] MEDS: ACCU-CHEK COMFORT CURVE STRIP VI SCH ×2 (08:00→17:15)
[2023-12-12] MEDS ORDERED: VANCOMYCIN PER PHARMACY 0 MG IV SCH (08:45)
[2023-12-12] MEDS: InsuLIN REG 1unit/0.01ml Soln (100units/ml) SC SCH ×3 (08:45→21:21)
[2023-12-12] MEDS ORDERED: CEFEPIME 1GM/ 50ML 50 ML IV SCH (10:00)
[2023-12-12] MEDS ORDERED: INSULIN LANTUS (GLARGINE) 1 /0.01ml (100units/ml) SC SCH ×3 (10:00)
[2023-12-12] MEDS ORDERED: PANTOPRAZOLE 40 MG/10 ML VIAL INJ IV SCH ×2 (10:00)
[2023-12-12] MEDS ORDERED: VANCOMYCIN 1GM/200ML 200 ML IV SCH ×3 (10:00→11:00)
[2023-12-12] MEDS: CEFEPIME 1GM/ 50ML 50 ML IV SCH (11:13)
[2023-12-12] MEDS: INSULIN LANTUS (GLARGINE) 1 /0.01ml (100units/ml) SC ONE (11:18)
[2023-12-12] MEDS ORDERED: DEXTROSE (50%) 50ML SYRG IV PRN (11:45)
[2023-12-12 19:55] LABS: Chloride 115 mmol/L (98-107); Potassium 3.1 mmol/L (3.5-5.1); Sodium 142 mmol/L (136-145)
[2023-12-12 19:56] LABS: Anion Gap 7 (5-15); Carbon Dioxide 20 mmol/L (20-30)
[2023-12-12 19:57] LABS: Calcium 8.4 mg/dL (8.5-10.1)
[2023-12-12 20:01] LABS: BUN/Creatinine Ratio 16.7 (10.0-20.0); Blood Urea Nitrogen 12 mg/dL (9-23); Glucose 141 mg/dL (74-106)
[2023-12-13 01:00] VITALS: BP 111/70; PULSE 89; RESP 18; TEMP 98.4; O2SAT 99
[2023-12-13 01:15] LABS: Anion Gap 5 (5-15); Calcium 8.3 mg/dL (8.7-10.4); Carbon Dioxide 20 mmol/L (20-30); Chloride 115 mmol/L (98-107); Sodium 140 mmol/L (136-145)
[2023-12-13 01:22] LABS: BUN/Creatinine Ratio 15.3 (10.0-20.0); Blood Urea Nitrogen 9 mg/dL (9-23); Glucose 131 mg/dL (74-106)
[2023-12-13 05:00] VITALS: BP 114/82; PULSE 87; RESP 18; TEMP 98.5; O2SAT 98
[2023-12-13 07:05] LABS: Anion Gap 7 (5-15); Carbon Dioxide 20 mmol/L (20-30); Chloride 115 mmol/L (98-107); Potassium 2.9 mmol/L (3.5-5.1); Sodium 142 mmol/L (136-145)
[2023-12-13 07:06] LABS: Basophils # (auto) 0 10 ^3/uL (0-0.2); Basophils % (auto) 0.2 % (0.0-2.0); Calcium 8.1 mg/dL (8.7-10.4); Eosinophils # (auto) 0.1 10 ^3/uL (0-0.8); Eosinophils % (auto) 1.4 % (0.0-7.0); Hematocrit 32.3 % (36.0-46.0); Hemoglobin 10.8 g/dL (12.2-16.2); Lymphocytes # (auto) 1.2 10 ^3/uL (0.4-5.4); Lymphocytes % (auto) 15.8 % (10.0-50.0); Mean Corpuscular Hgb Conc. 33.5 g/dL (32.0-36.0); Mean Corpuscular Volume 89.5 fL (80.0-100.0); Monocytes # (auto) 0.9 10 ^3/uL (0-1.3); Monocytes % (auto) 12.3 % (0.0-12.0); Neutrophils # (auto) 5.4 10 ^3/uL (1.6-8.6); Neutrophils % (auto) 70.3 % (37.0-80.0); Red Blood Cells 3.61 10^6/uL (4.0-5.20); Red Cell Distribution Width 16.1 % (11.8-14.3); White Blood Cell 7.7 10^3/uL (4.4-10.8)
[2023-12-13 07:11] LABS: BUN/Creatinine Ratio 20.8 (10.0-20.0); Blood Urea Nitrogen 11 mg/dL (9-23); Glucose 140 mg/dL (74-106)
[2023-12-13 07:12] LABS: Magnesium 1.7 mg/dL (1.6-2.6)
[2023-12-13 07:30] VITALS: PULSE 80; PULSE 81; O2SAT 100
[2023-12-13] MEDS: POTASSIUM CHL 20 Meq TABLET PO ONE (08:58)
[2023-12-13 09:00] VITALS: BP 115/80; PULSE 80; RESP 18; TEMP 97.7; O2SAT 97
[2023-12-13] MEDS: INSULIN LANTUS (GLARGINE) 1 /0.01ml (100units/ml) SC SCH (10:14)
[2023-12-13 13:00] VITALS: BP 126/88; PULSE 81; RESP 18; TEMP 97.6; O2SAT 98
[2023-12-13 14:47] VITALS: BP 126/88; PULSE 71; RESP 18; TEMP 97.6; O2SAT 98
== END 2023-12-13 15:50 | disposition home or self-care (01) | DRG 720 ==
LOC: ER 15:10 → TELE 22:14 → EAST 12-12 18:43 → TELE-EAST 12-12 18:44 → EAST 12-13 12:33
PROVIDERS: ADMIT Internal Medicine Pulmonary Disease; ATTEND Emergency Medicine
DX: A41.9 Sepsis, unspecified organism (principal); N17.0 Acute kidney failure with tubular necrosis; E10.10 Type 1 diabetes mellitus with ketoacidosis without coma; E86.0 Dehydration; Z91.199 Patient's noncompliance with other medical treatment and regimen due to unspecified reason; Z79.4 Long term (current) use of insulin; N30.00 Acute cystitis without hematuria
CPT/HCPCS: 36415; 36600; 71045; 80048; 80053; 80202; 80307; 80320; 81001; 82010; 82565; 82805; 82962; 83605; 83690; 83735; 83930; 84100; 84484; 84702; 85007; 85025; 85027; 85610; 85730; 87040; 87086; 96365; 96366; 96367; 96372; C9113; G0378; J1815; J2543

== ENCOUNTER 2024-08-10 12:57 | Emergency (ER) | payer MEDICAID ==
[~2024-08-10] VITALS: Ht 167.6 cm; Wt 44.1 kg
--- NOTE | 2024-08-10 14:07 | ED.PDOC ---
General HPI Comments HPI: Poor Historian. 19-year-old female presents to emergency department for elevated blood sugar at home this morning. Patient takes insulin they states compliance with her medications. Patient has been experiencing some dysuria as well. She feels weakness. Denies any vaginal bleeding. She says that she has some discomfort in the suprapubic area. Denies any history of STDs or . Symptoms onset this morning. She said she was totally fine yesterday. VITALS: Temp: 98.1 F RR: 20 02 sat : 97 % on room air HR: 115 BP: 1100/56 PMH: DM, PSH: denies Social history: denies tobacco use, denies ETOH use, denies drug use Medications: insulin Allergies: denies REVIEW OF SYSTEMS: CONSTITUTIONAL: Denies acute: fever, diaphoresis, chills, HEAD: Denies acute: headache, photophobia Eyes: Denies acute: Double vision, vision loss, eye pain, eye discharge. EARS: Denies acute: tinnitus, hearing loss, ear discharge, ear pain, THROAT: Denies acute: sore throat, swelling, difficulty swallowing , pain with swallowing, change in voice. NECK: Denies acute: neck pain, neck swelling, stiff neck. HEART: Denies acute : chest pain, palpitations, LUNGS: Denies acute: SOB, wheezing, cough, hemoptysis ABDOMEN: Denies acute: abdominal pain, Nausea, Vomiting, diarrhea, melena , hematemesis, hematochezia SKIN: Denies acute: rash, redness, lesions, itchiness. EXTREMITIES: Denies acute: calf pain, numbness, tingling, weakness, denies pain in extremity. Denies acute: Low back pain. Neuro: Denies acute: focal neurological deficit, motor or sensory focal neurological de ficit, tremors, seizure like activity, confusion, dizziness, change in mental status, loss of bowel or bladder function, cauda equina like symptoms. : Denies acute: hematuria, flank pain, increase in urinary frequency. PSYCH: Denies acute: hallucination, suicidal ideation, homicidal ideation. FEMALE: Denies acute: abnormal vaginal bleeding, foul odor, unusual discharge. PHYSICAL EXAM: General: Klye-za-fflluahv acute distress, awake and alert. Head: normocephalic, atraumatic. Neck: supple, trachea is midline, no swelling. Throat: Normal phonation. Eyes:, no erythema, no purulent discharge, no proptosis, no icterus. Heart: regular tachycardic, no significant murmur appreciated. Lungs: no apparent respiratory distress, Able to speak in full sentences. No wheezing, no rhonchi, no crackles. No stridors Clear to auscultation bilaterally. Abdomen: Suprapubic tender to palpation, non distended, soft, no guarding, no rebound, + bowel sounds. Neuro: Awake, Alert, oriented to name, self, situation, follows commands GCS=15. Speech is normal. Skin: no petechia, no purpura, no cyanosis, non-pale, not jaundice. Lower extremities: --no - Pitting edema no deformity, no focal swelling, no calf TTP. Makes eye contact. moves all four extremities. Face: no apparent facial droop. Ambulating in the ED independently. Time Seen by MD: 13:35 Primary Care Provider: NONE Reviewed notes: Nurses Notes, Medications, Allergies Allergies: Coded Allergies: NO KNOWN ALLERGIES (Unverified , 08/21/22) Home Meds Active Scripts Doxycycline Hyclate (DOXYCYCLINE HYCLATE) 100 Mg Tab, 1 TAB PO BID, #20 TAB Prov:VALERIE MANCILLA DO 08/10/24 Insulin Lispro (Humalog Kwikpen) 100 Unit/Ml Inj, 100 UNIT SC TIDWM for 30 Days, #1 INJ 4 Refills INSULIN PER SLIDING SCALE QAC TID 150-200: 2 UNITS 201-250: 4 UNITS 251-300: 8 UNITS 301-350: 12 UNITS 351-400: 15 UNITS >400 CALL DOCTOR Prov:BANG GUEVARA MD 10/31/23 Insulin Glargine (Basaglar Kwikpen) 100 Unit/Ml Inj, 30 UNIT SC QPM for 30 Days, #1 INJ 4 Refills Prov:BANG GUEVARA MD 10/31/23 Insulin Glargine (Basaglar Kwikpen) 100 Unit/Ml Inj, 30 UNIT SC HS for 6 Days, #2 INJ 1 Refill Prov:RENE REEDER NP 07/27/23 Information Source: Patient Past Medical History PAST MEDICAL HISTORY: DM Surgical History: Denies all surgeries 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 Was a procedure done?: No X-Ray, Labs, Meds, VS Vital Signs Date Time Temp Pulse Resp B/P (MAP) Pulse Ox O2 Delivery O2 Flow Rate FiO2 08/10/24 18:52 128 18 107/73 (84) 99 08/10/24 18:52 Room Air* 0 21 08/10/24 14:34 98.1 147 20 100/56 (71) 97 08/10/24 14:23 115 Lab Test 08/10/24 14:45 08/10/24 14:15 Range/Units Urine Color Light-yellow Yellow Urine Clarity Turbid H Clear Urine pH 6.0 5.0-9.0 Urine Specific [place] 1.034 1.001-1.035 Urine Protein 2+ H Negative Urine Ketones 4+ H Negative Urine Blood 2+ H Negative /uL Urine Nitrite Negative Negative Urine Bilirubin Trace H Negative Urine Urobilinogen 3 H Negative mg/dL Urine Leukocyte Esterase 3+ Negative /uL Urine RBC 44 0 - 4 /hpf Urine WBC 47 0 - 5 /hpf Urine Squamous Epithelial Cells Few <5 /hpf Urine Bacteria Few H None Seen /hpf Urine Mucus Few None Seen Urine Yeast (Budding) Few None Seen /hpf Urine Glucose 4+ H Normal mg/dL Chlamydia trachomatis (BRAYAN) Pending Neisseria gonorrhoeae (BRAYAN) Pending White Blood Count 16.6 H 4.4-10.8 10^3/uL Red Blood Count 5.33 H 4.0-5.20 10^6/uL Hemoglobin 15.8 12.2-16.2 g/dL Hematocrit 48.7 H 36.0-46.0 % Mean Corpuscular Volume 91.3 80.0-100.0 fL Mean Corpuscular Hemoglobin 29.7 28.0-32.0 pg Mean Corpuscular Hemoglobin Concent 32.5 32.0-36.0 g/dL Red Cell Distribution Width 14.8 H 11.8-14.3 % Platelet Count 625 H 140-450 10^3/uL Mean Platelet Volume 7.6 6.9-10.8 fL Neutrophils (%) (Auto) 78.6 37.0-80.0 % Lymphocytes (%) (Auto) 11.3 10.0-50.0 % Monocytes (%) (Auto) 9.6 0.0-12.0 % Eosinophils (%) (Auto) 0.1 0.0-7.0 % Basophils (%) (Auto) 0.4 0.0-2.0 % Neutrophils # (Auto) 13.1 H 1.6-8.6 10 ^3/uL Lymphocytes # (Auto) 1.9 0.4-5.4 10 ^3/uL Monocytes # (Auto) 1.6 H 0-1.3 10 ^3/uL Eosinophils # (Auto) 0 0-0.8 10 ^3/uL Basophils # (Auto) 0.1 0-0.2 10 ^3/uL Nucleated Red Blood Cells 0.1 % Sodium Level 138 136-145 mmol/L Potassium Level 4.5 3.5-5.1 mmol/L Chloride Level 110 H 98-107 mmol/L Carbon Dioxide Level 12 L 20-31 mmol/L Anion Gap 16 H 5-15 Blood Urea Nitrogen 11 9-23 mg/dL Creatinine 1.08 H 0.550-1.02 mg/dL Glomerular Filtration Rate Calc 75 >90 mL/min BUN/Creatinine Ratio 10.2 10.0-20.0 Serum Glucose 135 H 74-106 mg/dL Lactic Acid Level 1.8 0.4-2.0 mmol/L Calcium Level 9.9 8.7-10.4 mg/dL Magnesium Level 2.0 1.6-2.6 mg/dL Total Bilirubin 0.2 0.2-1.0 mg/dL Aspartate Amino Transferase (AST) 11 L 13-40 U/L Alanine Aminotransferase (ALT) 19 7-40 U/L Alkaline Phosphatase 159 H 46-116 U/L Total Protein 7.5 5.7-8.2 g/dL Albumin 4.5 3.2-4.8 g/dL Beta-Hydroxybutyric Acid 2.492 H < 0.4 mmol/L Beta HCG, Quantitative < 0.0 L 1.5-4.2 mIU/mL Current Medications Medications (Trade) Dose Ordered Sig/Martha Route Start Time Stop Time Status Last Admin Sodium Chloride 1,000 ml @ 1,000 mls/hr Q1H ONCE IV 08/10/24 14:15 08/10/24 15:14 DC 08/10/24 18:47 Ceftriaxone Sodium 50 ml @ 100 mls/hr ONCE ONCE IV 08/10/24 14:15 08/10/24 14:44 DC 08/10/24 18:47 Fluconazole (Diflucan Tablet) 200 mg ONCE ONCE PO 08/10/24 15:15 08/10/24 15:35 DC 08/10/24 18:47 Doxycycline Monohydrate (Vibramycin Tablet) 100 mg ONCE ONCE PO 08/10/24 18:00 08/10/24 18:09 DC 08/10/24 18:47 [place] [address] Ph: [phone] DIAGNOSTIC IMAGING Diagnostic Imaging Report : [id number] Signed PATIENT: SAUL NUNO NACCT: [id number] UNIT: [id number] : 2005 LOC: ER ROOM / BED: / AGE / SEX: 19 / F ADM STATUS: REG ER SERVICE 1417 ORDERING PHYSICIAN: VALERIE MANCILLA DO PROCEDURE(s): ABPL - CT AB PEL WO CON-NO ORAL OR IV REASON: suprapubic pain ORDER NUMBER(s): [id number], ACCESSION NUMBER(s): [id number] Exam: CT CT AB PEL WO CON-NO ORAL OR IV History: suprapubic pain Comparison Study: None available at time of dictation. TECHNIQUE: Multidetector CT of the abdomen was performed from lung bases to pubic symphysis. Imaging was performed without IV contrast. Axial, coronal and sagittal multiplanar reformats were obtained from the axial data set by the technologist. Radiation Dose Information: CT Dose: CTDI volume is 5.07 mGy. Dose-length product is 245.81 mGy*cm FINDINGS: Evaluation of solid organs is limited due to lack of intravenous contrast use. Findings: Lung Bases: No acute or significant lung base finding. Normal heart size. No pleural or pericardial effusion. Liver: The liver is normal in size. No focal lesions. Gallbladder and Biliary Tree: Unremarkable Spleen: Unremarkable Pancreas: The pancreas is grossly normal in appearance. Adrenal Glands: Unremarkable Kidneys: Kidneys are grossly normal without calculi or hydronephrosis. Bladder: Grossly unremarkable for degree of distention. Bowel: The stomach is grossly normal in appearance. Small bowel and colon are normal in caliber and distribution. The appendix is not visualized; however, no secondary findings of acute appendicitis identified. Ascites: Absent Lymphadenopathy: No mesenteric, retroperitoneal or periportal lymphadenopathy. Abdominal Wall and Mesentery: Unremarkable. Vasculature: The visualized abdominal aorta is normal in size and caliber. Evaluation of abdominal and pelvic vessels is limited due to lack of intravenous contrast. Pelvic Organs: Unremarkable Musculoskeletal: No aggressive focal bony lesions, acute fractures or dislocation. Soft tissues: Unremarkable IMPRESSION: 1. There is no free air or free fluid. 2. Subcutaneous tissues anterior to the pubic symphysis and cephalad and appear normal. 3. Bladder is poorly visualized and not evaluated in its entirety however there are no calcifications seen and no significant distention. 4. No fractures of the superior pubic ramus or pubic symphysis. Radiation optimization: All CT scans at this facility use at least one of these dose optimization techniques: automated exposure control mA and/or kV adjustment per patient size (includes targeted exams where dose is matched to clinical indication) or iterative reconstruction. ATED BY: CARLOS EDUARDO BEAN Jr., DO DICTATED DATE/TIME: 08/10/241608 SIGNED BY: CARLOS EDUARDO BEAN Jr., SIGNED DATE/TIME: 08/10/241608 CC: [place] [address] Ph: [phone] DIAGNOSTIC IMAGING Diagnostic Imaging Report : [id number] Signed PATIENT: SAUL NUNO NACCT: [id number] UNIT: [id number] : 2005 LOC: ER ROOM / BED: / AGE / SEX: 19 / F ADM STATUS: REG ER SERVICE 1402 ORDERING PHYSICIAN: VALERIE MANCILLA DO PROCEDURE(s): PELUS - PELVIC REASON: hyperglycemia, dysurea ORDER NUMBER(s): [id number], ACCESSION NUMBER(s): [id number] CLINICAL HISTORY: hyperglycemia, dysurea COMPARISON: None TECHNIQUE: Transabdominal grayscale sonographic imaging of the uterus and ovaries was performed, assisted by color Doppler technique. Patient was unable to tolerate transvaginal examination. Duplex Doppler ultrasound of both ovaries was also performed. FINDINGS: Examination is limited due to overlying bowel gas The uterus is retroverted measures 6.4 x 3.3 x 2.7 cm. The endometrium was not able to be delineated. Neither ovary was able to be visualized. IMPRESSION: Limited examination as described above. Prominent bowel gas obscures visualization and patient unable to tolerate transvaginal examination. ATED BY: CHUY MAGUIRE DO DICTATED DATE/TIME: 08/10/241628 SIGNED BY: CHUY MAGUIRE DO SIGNED DATE/TIME: 08/10/241628 CC: Time of 1ST Reevaluation: 18:38 Reevaluation 1ST: Improved Patient Education/Counseling: Diagnosis, Treatment Family Education/Counseling: No Family Present Comments MDM: Patient presented with the above HPI.----- high blood sugar -workup was initiated. patient was found with the above mentioned diagnosis. the following medications were ordered: doxycycline, fluconazole, Rocephin, IV fluids, the following tests were ordered: CT abdomen and pelvis, EKG x 1, CBC, chlamydia/GC, magnesium, lactic acid, UA, Beta HCG, Beta- hydroxybutyrate, CMP, CBC, pelvic US, Patient ED course and VS have been stabilized. Patient has been reassessed in the ED and remained in a stable condition. Patient has been observed in the ED adequate length of time to insure improvement/stability. Escalation of care considered: Consideration of escalation to observation or admission. Patient was still pending repeat CBC. Patient left against medical advice. All the reports of any imaging studies that were ordered by myself were reviewed by myself. Departure 1 Departure Time of Disposition: 15:16 Impression: Primary Impression: Dysuria Additional Impressions: Tachycardia UTI (urinary tract infection) Leukocytosis Disposition: LEFT AGAINST MEDICAL ADVICE Condition: Stable Additional Instructions: You are leaving against medical advice please return to the emergency department if you change your mind. Additional discharge instructions: You MUST follow-up with your primary care/family doctor in 1 to 2 days. If you are unable to see your primary care/family doctor, please return to our emergency room for re-assessment and re-evaluation in 1 to 2 days. Return to the emergency room here in our facility or to the nearest ER [facility] if your symptoms change or worsen. CONSULTATIONS: you MUST Follow-up for consultation as soon as possible with: Dr.-OB Morris doctor in 1-2 days. Please call for appointment You MUST call the consultants office yourself to make an appointment. You may need to arrange that through your insurance and/or your primary/family doctor. If you are unable to see the banking consultant in 1 to 2 days, you must return to our emergency room (or any other ER of your choice) for re-assessment and re- evaluation. Adequate fluid hydration. Pelvic rest. Repeat your CBC and CMP in 24-48 hours. Below is a copy of your radiological report for follow up: [place] [address] Ph: [phone] DIAGNOSTIC IMAGING Diagnostic Imaging Report : [id number] Signed PATIENT: SAUL NUNO ACCT: [id number] UNIT: [id number] : 2005 LOC: ER ROOM / BED: / AGE / SEX: 19 / F ADM STATUS: REG ER SERVICE 1417 ORDERING PHYSICIAN: VALERIE MANCILLA DO PROCEDURE(s): ABPL - CT AB PEL WO CON-NO ORAL OR IV REASON: suprapubic pain ORDER NUMBER(s): [id number], ACCESSION NUMBER(s): [id number] Exam: CT CT AB PEL WO CON-NO ORAL OR IV History: suprapubic pain Comparison Study: None available at time of dictation. TECHNIQUE: Multidetector CT of the abdomen was performed from lung bases to pubic symphysis. Imaging was performed without IV contrast. Axial, coronal and sagittal multiplanar reformats were obtained from the axial data set by the technologist. Radiation Dose Information: CT Dose: CTDI volume is 5.07 mGy. Dose-length product is 245.81 mGy*cm FINDINGS: Evaluation of solid organs is limited due to lack of intravenous contrast use. Findings: Lung Bases: No acute or significant lung base finding. Normal heart size. No pleural or pericardial effusion. Liver: The liver is normal in size. No focal lesions. Gallbladder and Biliary Tree: Unremarkable Spleen: Unremarkable Pancreas: The pancreas is grossly normal in appearance. Adrenal Glands: Unremarkable Kidneys: Kidneys are grossly normal without calculi or hydronephrosis. Bladder: Grossly unremarkable for degree of distention. Bowel: The stomach is grossly normal in appearance. Small bowel and colon are normal in caliber and distribution. The appendix is not visualized; however, no secondary findings of acute appendicitis identified. Ascites: Absent Lymphadenopathy: No mesenteric, retroperitoneal or periportal lymphadenopathy. Abdominal Wall and Mesentery: Unremarkable. Vasculature: The visualized abdominal aorta is normal in size and caliber. Evaluation of abdominal and pelvic vessels is limited due to lack of intravenous contrast. Pelvic Organs: Unremarkable Musculoskeletal: No aggressive focal bony lesions, acute fractures or dislocation. Soft tissues: Unremarkable IMPRESSION: 1. There is no free air or free fluid. 2. Subcutaneous tissues anterior to the pubic symphysis and cephalad and appear normal. 3. Bladder is poorly visualized and not evaluated in its entirety however there are no calcifications seen and no significant distention. 4. No fractures of the superior pubic ramus or pubic symphysis. Radiation optimization: All CT scans at this facility use at least one of these dose optimization techniques: automated exposure control mA and/or kV adjustment per patient size (includes targeted exams where dose is matched to clinical indication) or iterative reconstruction. ATED BY: CARLOS EDUARDO BEAN Jr., DO DICTATED DATE/TIME: 08/10/241608 SIGNED BY: CARLOS EDUARDO BEAN Jr., DO SIGNED DATE/TIME: 08/10/241608 CC: [place] [address] Ph: [phone] DIAGNOSTIC IMAGING Diagnostic Imaging Report : [id number] Signed PATIENT: SAUL NUNO ACCT: [id number] UNIT: [id number] : 2005 LOC: ER ROOM / BED: / AGE / SEX: 19 / F ADM STATUS: REG ER SERVICE 1402 ORDERING PHYSICIAN: VALERIE MANCILLA DO PROCEDURE(s): PELUS - PELVIC REASON: hyperglycemia, dysurea ORDER NUMBER(s): [id number], ACCESSION NUMBER(s): [id number] CLINICAL HISTORY: hyperglycemia, dysurea COMPARISON: None TECHNIQUE: Transabdominal grayscale sonographic imaging of the uterus and ovaries was performed, assisted by color Doppler technique. Patient was unable to tolerate transvaginal examination. Duplex Doppler ultrasound of both ovaries was also performed. FINDINGS: Examination is limited due to overlying bowel gas The uterus is retroverted measures 6.4 x 3.3 x 2.7 cm. The endometrium was not able to be delineated. Neither ovary was able to be visualized. IMPRESSION: Limited examination as described above. Prominent bowel gas obscures visualization and patient unable to tolerate transvaginal examination. ATED BY: CHUY MAGUIRE DO DICTATED DATE/TIME: 08/10/241628 SIGNED BY: CHUY MAGUIRE DO SIGNED DATE/TIME: 08/10/241628 CC: e-Prescriptions Doxycycline Hyclate (DOXYCYCLINE HYCLATE) 100 Mg Tab 1 TAB PO BID, #20 TAB Prov: VALERIE MANCILLA DO 08/10/24 Discharged With: Self I personally scribed for VALERIE MANCILLA DO ([email or web address]) on 08/10/24 at 14:07. Electronically submitted by Barbara Weiss ([email or web address]). I personally scribed for VALERIE MANCILLA DO ([email or web address]) on 08/10/24 at 21:41. Electronically submitted by Barbara Weiss ([email or web address]). VALERIE MANCILLA DO Aug 10, 2024 14:07
[2024-08-10 14:39] LABS: Basophils # (auto) 0.1 10 ^3/uL (0-0.2); Basophils % (auto) 0.4 % (0.0-2.0); Eosinophils # (auto) 0 10 ^3/uL (0-0.8); Eosinophils % (auto) 0.1 % (0.0-7.0); Hematocrit 48.7 % (36.0-46.0); Hemoglobin 15.8 g/dL (12.2-16.2); Lymphocytes # (auto) 1.9 10 ^3/uL (0.4-5.4); Lymphocytes % (auto) 11.3 % (10.0-50.0); Mean Corpuscular Hemoglobin 29.7 pg (28.0-32.0); Mean Corpuscular Hgb Conc. 32.5 g/dL (32.0-36.0); Mean Corpuscular Volume 91.3 fL (80.0-100.0); Monocytes # (auto) 1.6 10 ^3/uL (0-1.3); Monocytes % (auto) 9.6 % (0.0-12.0); Neutrophils # (auto) 13.1 10 ^3/uL (1.6-8.6); Neutrophils % (auto) 78.6 % (37.0-80.0); Nucleated Red Blood Cells % 0.1 %; Platelet Count (auto) 625 10^3/uL (140-450); Red Blood Cells 5.33 10^6/uL (4.0-5.20); Red Cell Distribution Width 14.8 % (11.8-14.3); White Blood Cell 16.6 10^3/uL (4.4-10.8)
[2024-08-10 14:56] LABS: Alanine Aminotransferase 19 U/L (7-40); Albumin 4.5 g/dL (3.2-4.8); Anion Gap 16 (5-15); BUN/Creatinine Ratio 10.2 (10.0-20.0); Blood Urea Nitrogen 11 mg/dL (9-23); Calcium 9.9 mg/dL (8.7-10.4); Potassium 4.5 mmol/L (3.5-5.1); Sodium 138 mmol/L (136-145)
[2024-08-10 14:57] LABS: Urine Bacteria FEW /hpf (None Seen); Urine Blood 2+ /uL (Negative); Urine Budding Yeast FEW /hpf (None Seen); Urine Clarity Turbid (Clear); Urine Color Light-Yellow (Yellow); Urine Mucus FEW (None Seen); Urine Protein, UAD 2+ (Negative); Urine Specific Gravity 1.034 (1.001-1.035); Urine Squamous Epithelial Cell FEW /hpf (<5); Urine Urobilinogen 3 mg/dL (Negative); Urine WBC 47 /hpf (0 - 5)
[2024-08-10 14:57] LABS: Total Protein 7.5 g/dL (5.7-8.2)
[2024-08-10 14:58] LABS: Alkaline Phosphatase 159 U/L (46-116); Aspartate Aminotransferase 11 U/L (13-40); Bilirubin, Total 0.2 mg/dL (0.2-1.0); Carbon Dioxide 12 mmol/L (20-31); Chloride 110 mmol/L (98-107); Glucose 135 mg/dL (74-106)
--- NOTE | 2024-08-10 16:12 | DVH ---
Exam: CT CT AB PEL WO CON-NO ORAL OR IV History: suprapubic pain Comparison Study: None available at time of dictation. TECHNIQUE: Multidetector CT of the abdomen was performed from lung bases to pubic symphysis. Imaging was performed without IV contrast. Axial, coronal and sagittal multiplanar reformats were obtained fr om the axial data set by the technologist. Radiation Dose Information: CT Dose: CTDI volume is 5.07 mGy. Dose-length product is 245.81 mGy*cm FINDINGS: Evaluation of solid organs is limited due to lack of intravenous contrast use. Findings: Lung Bases: No acute or significant lung base finding. Normal heart size. No pleural or pericardial effusion. Liver: The liver is normal in size. No focal lesions. Gallbladder and Biliary Tree: Unremarkable Spleen: Unremarkable Pancreas: The pancreas is grossly normal in appearance. Adrenal Glands: Unremarkable Kidneys: Kidneys are grossly normal without calculi or hydronephrosis. Bladder: Grossly unremarkable for degree of distention. Bowel: The stomach is grossly normal in appearance. Small bowel and colon are normal in caliber and d istribution. The appendix is not visualized; however, no secondary findings of acute appendicitis id entified. Ascites: Absent Lymphadenopathy: No mesenteric, retroperitoneal or periportal lymphadenopathy. Abdominal Wall and Mesentery: Unremarkable. Vasculature: The visualized abdominal aorta is normal in size and caliber. Evaluation of abdominal a nd pelvic vessels is limited due to lack of intravenous contrast. Pelvic Organs: Unremarkable Musculoskeletal: No aggressive focal bony lesions, acute fractures or dislocation. Soft tissues: Unremarkable IMPRESSION: 1. There is no free air or free fluid. 2. Subcutaneous tissues anterior to the pubic symphysis and cephalad and appear normal. 3. Bladder is poorly visualized and not evaluated in its entirety however there are no calcifications seen and no significant distention. 4. No fractures of the superior pubic ramus or pubic symphysis. Radiation optimization: All CT scans at this facility use at least one of these dose optimization elaine hniques: automated exposure control mA and/or kV adjustment per patient size (includes targeted exam s where dose is matched to clinical indication) or iterative reconstruction.
--- NOTE | 2024-08-10 16:32 | DVH ---
CLINICAL HISTORY: hyperglycemia, dysurea COMPARISON: None TECHNIQUE: Transabdominal grayscale sonographic imaging of the uterus and ovaries was performed, assi sted by color Doppler technique. Patient was unable to tolerate transvaginal examination. Duplex Dopp ler ultrasound of both ovaries was also performed. FINDINGS: Examination is limited due to overlying bowel gas The uterus is retroverted measures 6.4 x 3.3 x 2.7 cm. The endometrium was not able to be delineated. Neither ovary was able to be visualized. IMPRESSION: Limited examination as described above. Prominent bowel gas obscures visualization and patient unable to tolerate transvaginal examination.
[2024-08-10] MEDS: DOXYCYCLINE 100 MG TAB/CAP PO ONE (18:47)
[2024-08-10] MEDS: cefTRIAXone 1GM/50ML D5W 50 ML IV ONE (18:47)
[2024-08-10] MEDS: SODIUM CHLORIDE 0.9% 1,000 ML IV ONE (18:47)
[2024-08-10] MEDS: FLUCONAZOLE 100 MG TAB PO ONE (18:47)
[2024-08-10 18:52] VITALS: BP 107/73; PULSE 128; RESP 18; O2SAT 99
[2024-08-10] MEDS ORDERED: DOXY-286 PO (21:15)
--- NOTE | 2024-08-11 07:04 | ECG ---
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
[2024-08-14 13:06] LABS: Chlamydia Trachomatis, NAA Negative (Negative); Neisseria gonorrhoeae, NAA Negative (Negative)
== END 2024-08-10 21:08 | disposition left against medical advice (07) ==
LOC: ER 12:57
DX: N39.0 Urinary tract infection, site not specified (principal); R00.0 Tachycardia, unspecified; D72.829 Elevated white blood cell count, unspecified; E11.65 Type 2 diabetes mellitus with hyperglycemia; Z79.4 Long term (current) use of insulin
CPT/HCPCS: 36415; 74176; 76856; 80053; 81001; 82010; 83605; 83735; 84702; 85025; 87491; 87591; 93005; 96365; 99285; J0696; J7030

== ENCOUNTER 2025-05-09 04:10 | Inpatient (IN) | payer MEDICAID ==
[~2025-05-09] VITALS: Ht 167.6 cm; Wt 51.7 kg
[~2025-05-09 04:10] MED LIST changes: +DOXY-286 PO
[2025-05-09] MEDS ORDERED: DEXTROSE (50%) 50ML SYRG IV PRN (04:30)
--- NOTE | 2025-05-09 04:33 | ED.PDOC ---
History of present illness HPI Comments HPI: 19-year-old female who came to ER for hyperglycemia. Patient has a history of type 1 diabetes, claims that she has good compliance to her insulin. Most recent was 4 units this morning Patient has been admitted here multiple times for DKA. Patient coming in for shortness a breath, nausea, vomiting and no abdominal pain. Upon arrival blood sugar was 598. Patient states that she feels like she is having another DKA attack Initial Vitals BP: 103/62 HR: 143 RR: O2: 94% Temp: Past Medical History: Diabetes Past Surgical History: Denies Social History: Denies ETOH, smoking, and drug use. Medications: HPI: Poor Historian. REVIEW OF SYSTEMS: CONSTITUTIONAL: Denies acute: fever, diaphoresis, chills, HEAD: Denies acute: headache, photophobia Eyes: Denies acute: Double vision, vision loss, eye pain, eye discharge. EARS: Denies acute: tinnitus, hearing loss, ear discharge, ear pain, THROAT: Denies acute: sore throat, swelling, difficulty swallowing , pain with swallowing, change in voice. NECK: Denies acute: neck pain, neck swelling, stiff neck. HEART: Denies acute : chest pain, palpitations, LUNGS: Denies acute: wheezing, cough, hemoptysis ABDOMEN: Denies acute: abdominal pain, , diarrhea, melena , hematemesis, hematochezia SKIN: Denies acute: rash, redness, lesions, itchiness. EXTREMITIES: Denies acute: calf pain, numbness, tingling, weakness, denies pain in extremity. Denies acute: Low back pain. Neuro: Denies acute: focal neurological deficit, motor or sensory focal neurological deficit, tremors, seizure like activity, confusion, dizziness, change in mental status, loss of bowel or bladder function, cauda equina like symptoms. : Denies acute: dysuria, hematuria, flank pain, increase in urinary frequency. PSYCH: Denies acute: hallucination, suicidal ideation, homicidal ideation. FEMALE: Denies acute: abnormal vaginal bleeding, foul odor, unusual discharge. PHYSICAL EXAM: General: ----[id number]----acute distress, awake and alert. Head: normocephalic, atraumatic. Neck: supple, trachea is midline, no swelling. Throat: Normal phonation. Dry oral mucosa Eyes:, no erythema, no purulent discharge, no proptosis, no icterus. Heart: regular tachycardia, no significant murmur appreciated. Lungs: no apparent respiratory distress, Able to speak in full sentences. No wheezing, no rhonchi, no crackles. No stridors Clear to auscultation bilaterally. Abdomen: non tender to palpation, non distended, soft, no guarding, no rebound, + bowel sounds. Neuro: Awake, Alert, oriented to name, self, situation, follows commands GCS=15. Speech is normal. Skin: no petechia, no purpura, no cyanosis, non-pale, not jaundice. Lower extremities: --no - Pitting edema no deformity, no focal swelling, no calf TTP. Makes eye contact. moves all four extremities. Face: no apparent facial droop. ED COURSE: DISCLAIMER: This medical document was created using an electronic medical record system with voice recognition software and computerized dictation system. Although this document has been carefully reviewed, there might still be some phonetic and typographical errors. Occasional wrong-word or "sound-alike" substitutions may have occurred due to the inherent limitations of voice recognition software. These areas are purely typographical due to imperfections of the software programs and do not reflect any compromise in the patient's medical care. Please read the chart carefully and recognize, using context, where these substitutions have occurred. Chief Complaint: Hyperglycemia Time Seen by MD: 04:32 Primary Care Provider: NONE History of present illness: Nurses Notes, Allergies Allergies: Coded Allergies: NO KNOWN ALLERGIES (Unverified , 08/21/22) Home Meds Active Scripts Insulin Lispro (Humalog Kwikpen) 100 Unit/Ml Inj, 100 UNIT SC TIDWM for 30 Days, #1 INJ 4 Refills INSULIN PER SLIDING SCALE QAC TID 150-200: 2 UNITS 201-250: 4 UNITS 251-300: 8 UNITS 301-350: 12 UNITS 351-400: 15 UNITS >400 CALL DOCTOR Prov:BANG GUEVARA MD 10/31/23 Insulin Glargine (Basaglar Kwikpen) 100 Unit/Ml Inj, 30 UNIT SC QPM for 30 Days, #1 INJ 4 Refills Prov:BANG GUEVARA MD 10/31/23 Insulin Glargine (Basaglar Kwikpen) 100 Unit/Ml Inj, 30 UNIT SC HS for 6 Days, #2 INJ 1 Refill Prov:RENE REEDER NP 07/27/23 Discontinued Scripts Doxycycline Hyclate (DOXYCYCLINE HYCLATE) 100 Mg Tab, 1 TAB PO BID, #20 TAB Prov:ANGELICA MANCILLA Yuri CHARLES 08/10/24 Information Source: Patient Mode of Arrival: Ambulatory Past Medical History PAST MEDICAL HISTORY: DM Surgical History: Denies all surgeries IMMIGRATION GUARD History: Denies all IMMIGRATION GUARD Hx Family History Family History: Reviewed,noncontributory to illness, Family hx of HTN Family History (Other): asthma Social History Smoker: Non-Smoker Alcohol: Denies ETOH Use Drugs: Denies Drug Use Lives In: Home Was a procedure done? Was a procedure done?: No Differential Diagnosis (DM) Differential Diagnosis: Dehydration, Diabetic Coma, DKA, Electrolyte Abnormality, Gastritis, Gastroenteritis, Hyperglycemia, Hyperosmolar State, Pancreatitis, Pyelonephritis, UTI X-Ray, Labs, Meds, VS Vital Signs Date Time Temp Pulse Resp B/P (MAP) Pulse Ox O2 Delivery O2 Flow Rate FiO2 05/09/25 09:00 144 13 135/94 (108) 98 05/09/25 08:00 144 18 117/80 (92) 99 05/09/25 07:25 130 14 98 Room Air* 0 21 05/09/25 07:15 130 14 137/101 (113) 98 05/09/25 06:30 124 13 132/95 (107) 98 05/09/25 04:50 97.8 133 18 93/45 (61) 98 97.8 05/09/25 04:50 133 20 98 Room Air* 0 21 05/09/25 04:13 97.3 144 25 103/62 95 97.3 Lab Test 05/09/25 09:07 05/09/25 08:38 05/09/25 08:04 05/09/25 07:51 Range/Units POC Glucose 236 H 281 H 70-106 mg/dl Blood Gas Specimen Type Arterial Blood Gas Sample Site Right brachial Blood Gas Patient Temperature 37.0 Arterial Blood Date Drawn [id number] Arterial Blood pH 7.406 7.350-7.450 Arterial Blood Partial Pressure CO2 25.3 L 32.0-45.0 mmHg Arterial Blood Partial Pressure O2 92.4 83.0-108.0 mmHg Arterial Blood HCO3 15.5 L 21.0-28.0 mmol/L Arterial Blood Oxygen Saturation 97.5 94.0-98.0 % Arterial Blood Base Excess -7.4 L -2.0-3.0 mmol/L Arterial Blood Oxyhemoglobin 96.4 94.0-98.0 % Arterial Blood Carboxyhemoglobin 0.6 0.5-1.5 % Arterial Blood Methemoglobin 0.5 0.0-1.5 % Darren Test N/a Blood Gas Total Hemoglobin 13.20 12.0-16.0 g/dL Blood Gas Modality Room air FiO2 % 21.0 White Blood Count 30.4 *H 4.4-10.8 10^3/uL Red Blood Count 4.72 4.0-5.20 10^6/uL Hemoglobin 12.9 12.2-16.2 g/dL Hematocrit 39.1 # 36.0-46.0 % Mean Corpuscular Volume 82.8 # 80.0-100.0 fL Mean Corpuscular Hemoglobin 27.4 L 28.0-32.0 pg Mean Corpuscular Hemoglobin Concent 33.0 32.0-36.0 g/dL Red Cell Distribution Width 16.8 H 11.8-14.3 % Platelet Count 551 H 140-450 10^3/uL Mean Platelet Volume 7.7 6.9-10.8 fL Neutrophils (%) (Auto) 37.0-80.0 % Lymphocytes (%) (Auto) 10.0-50.0 % Monocytes (%) (Auto) 0.0-12.0 % Basophils (%) (Auto) 0.0-2.0 % Neutrophils # (Auto) 1.6-8.6 10 ^3/uL Lymphocytes # (Auto) 0.4-5.4 10 ^3/uL Monocytes # (Auto) 0-1.3 10 ^3/uL Differential Total Cells Counted 100.0 100 Neutrophils % (Manual) 93 H 37.0-80.0 Band Neutrophils % (Manual) 1 Lymphocytes % (Manual) 4 L 10.0-50.0 Monocytes % (Manual) 2 0-12 Eosinophils % (Manual) 0 0-7 Basophils % (Manual) 0 0.0-2.0 Metamyelocytes % (manual) 0 Myelocytes % (Manual) 0 Promyelocytes % (Manual) 0 Blast Cells % (Manual) 0 Reactive Lymphocytes 0 Platelet Estimate Adequate Red Blood Cell Morphology Normal Test 05/09/25 06:06 05/09/25 05:49 05/09/25 05:03 05/09/25 04:50 Range/Units POC Glucose 496 *H > 600 *H 70-106 mg/dl White Blood Count 30.6 *H 4.4-10.8 10^3/uL Red Blood Count 4.86 4.0-5.20 10^6/uL Hemoglobin 13.4 12.2-16.2 g/dL Hematocrit 43.5 36.0-46.0 % Mean Corpuscular Volume 89.5 80.0-100.0 fL Mean Corpuscular Hemoglobin 27.6 L 28.0-32.0 pg Mean Corpuscular Hemoglobin Concent 30.9 L 32.0-36.0 g/dL Red Cell Distribution Width 17.5 H 11.8-14.3 % Platelet Count 583 H 140-450 10^3/uL Mean Platelet Volume 8.3 6.9-10.8 fL Neutrophils (%) (Auto) 37.0-80.0 % Lymphocytes (%) (Auto) 10.0-50.0 % Monocytes (%) (Auto) 0.0-12.0 % Basophils (%) (Auto) 0.0-2.0 % Neutrophils # (Auto) 1.6-8.6 10 ^3/uL Lymphocytes # (Auto) 0.4-5.4 10 ^3/uL Monocytes # (Auto) 0-1.3 10 ^3/uL Differential Total Cells Counted 100.0 100 Neutrophils % (Manual) 93 H 37.0-80.0 Band Neutrophils % (Manual) 0 Lymphocytes % (Manual) 4 L 10.0-50.0 Monocytes % (Manual) 3 0-12 Eosinophils % (Manual) 0 0-7 Basophils % (Manual) 0 0.0-2.0 Metamyelocytes % (manual) 0 Myelocytes % (Manual) 0 Promyelocytes % (Manual) 0 Blast Cells % (Manual) 0 Reactive Lymphocytes 0 Platelet Estimate Adequate Sodium Level 141 136-145 mmol/L Potassium Level 4.1 3.5-5.1 mmol/L Chloride Level 103 98-107 mmol/L Carbon Dioxide Level < 10 *L 20-31 mmol/L Anion Gap 28.27064 H 5-15 Blood Urea Nitrogen 15 9-23 mg/dL Creatinine 1.84 H 0.550-1.02 mg/dL Glomerular Filtration Rate Calc 40 >90 mL/min BUN/Creatinine Ratio 8.2 L 10.0-20.0 Serum Glucose 618 *H 74-106 mg/dL Calcium Level 9.6 8.7-10.4 mg/dL Phosphorus Level 6.4 H 2.4-5.1 mg/dL Magnesium Level 2.4 1.6-2.6 mg/dL Beta-Hydroxybutyric Acid > 4.500 H < 0.4 mmol/L Blood Gas Specimen Type Arterial Blood Gas Sample Site Left radial Blood Gas Patient Temperature 37.0 Arterial Blood Date Drawn [id number] Arterial Blood pH 7.173 *L 7.350-7.450 Arterial Blood Partial Pressure CO2 < 14.1 *L 32.0-45.0 mmHg Arterial Blood Oxygen Saturation 98.8 H 94.0-98.0 % Arterial Blood Oxyhemoglobin 98.0 94.0-98.0 % Arterial Blood Carboxyhemoglobin 0.2 L 0.5-1.5 % Arterial Blood Methemoglobin 0.6 0.0-1.5 % Darren Test Yes Blood Gas Total Hemoglobin 13.20 12.0-16.0 g/dL Blood Gas Modality Room air FiO2 % 21.0 Blood Gas Critical Value Read Back yes Blood Gas Notified Whom angelica Mancilla md Blood Gas Notified Time [id number] Blood Gas Notified By Reheater kuldeep Melgar 05/09/25 04:30 05/09/25 04:23 05/09/25 04:21 Range/Units Serum Osmolality 369 H 278-298 mOsm/kg POC Glucose 598 *H 580 *H 70-106 mg/dl [address] [address] Ph: [phone] DIAGNOSTIC IMAGING Diagnostic Imaging Report : [id number] Signed PATIENT: SAUL NUNO NACCT: [id number] UNIT: [id number] : 2005 LOC: ER ROOM / BED: / AGE / SEX: 19 / F ADM STATUS: REG ER SERVICE [id number] ORDERING PHYSICIAN: ANGELICA MANCILLA DO PROCEDURE(s): CXRP - CHEST PORTABLE REASON: dka, sob ORDER NUMBER(s): [id number], ACCESSION NUMBER(s): [id number] CHEST RADIOGRAPH Indication: dka, sob Technique: Single frontal view of the chest was obtained COMPARISON: XY CHEST PORTABLE on DOS: 12/11/23, XY CHEST PORTABLE on DOS: 10/28/23, XY CHEST XRAY 1 VIEW on DOS: 09/30/23, XY CHEST XRAY 1 VIEW on DOS: 07/25/23, XY CHEST PORTABLE on DOS: 12/09/22 FINDINGS: Lines and Tubes: None Lungs: Clear Pleura: No effusion. No pneumothorax. Cardiomediastinal contours: Unremarkable Bones: Unremarkable IMPRESSION: 1. No acute disease. ATED BY: SEAMUS RODRIGUEZ MD DICTATED DATE/TIME: 05/09/25531 SIGNED BY: SEAMUS RODRIGUEZ MD SIGNED DATE/TIME: 05/09/25531 CC: Time of 1ST Reevaluation: 04:33 Reevaluation 1ST: Unchanged Time of 2ND Reevaluation: 05:33 (As of this minute labs have not been drawn yet) Patient Education/Counseling: Diagnosis, Treatment Family Education/Counseling: No Family Present Comments MDM: patient presented with the above HPI.---hyperglycemia/DKA---workup was initiated. patient was found with the above mentioned diagnosis. the following medications were ordered: please refer to order lists of meds and tests obtained by myself Dr. Mancilla. Patient ED course and VS have been stabilized. Patient has been reassessed in the ED and remained in a stable condition. Pertinent incidental findings were discussed with the patient and/or family. Patient/family voices understanding and is agreeable with plan. Patient has been observed in the ED adequate length of time to insure improvement/stability. Escalation of care considered: Consideration of escalation to observation or admission DKA protocol was initiated. Patient had leukocytosis. Antibiotics initiated Patient was ADMITTED to the medicine team for further evaluation and treatment of their presentation. All the reports of any imaging studies that were ordered by myself were reviewed by myself. SEPSIS Sepsis Screen Date sepsis recognized/suspect: May 09, 2025 Time Sepsis recognized/suspect: 0417 Recent Procedure: No On Antibiotic Therapy: No Respiratory Rate >20: No Heart Rate >90: No Temp<36 C (96.8 F) or >38.3 C: No SBP <90 or MAP <65 mmHG: No New Acute Mental Status Change: No Is the patient on CPAP, BIPAP,: No Physician Orders Abg W/ Co-Ox (05/09/25 04:21) Chest Portable (05/09/25 04:53) Code Status (05/09/25 08:19) Vital Signs Date Time Temp Pulse Resp B/P (MAP) Pulse Ox O2 Delivery O2 Flow Rate FiO2 05/09/25 09:00 144 13 135/94 (108) 98 05/09/25 08:00 144 18 117/80 (92) 99 05/09/25 07:25 130 14 98 Room Air* 0 21 05/09/25 07:15 130 14 137/101 (113) 98 05/09/25 06:30 124 13 132/95 (107) 98 05/09/25 04:50 97.8 133 18 93/45 (61) 98 97.8 05/09/25 04:50 133 20 98 Room Air* 0 21 05/09/25 04:13 97.3 144 25 103/62 95 97.3 Laboratory Tests Test 05/09/25 05:49 05/09/25 08:04 White Blood Count 30.6 10^3/uL (4.4-10.8) *H 30.4 10^3/uL (4.4-10.8) *H Departure 1 Departure Time of Disposition: 05:02 Impression: Primary Impression: DKA (diabetic ketoacidosis) Additional Impression: Leukocytosis Disposition: ADMITTED INPATIENT Admit to: ICU Condition: Critical Discharged With: Self Critical Care Note Critical Care Time?: Yes (45 min-critical care time only) Stability Stability form required: No Heart Score Heart Score: Heart Score Response (Comments) Value History Moderate Suspicious [address]-Deviation 2 Age <45 0 Risk Factors 1 or 2 risk factors 1 Troponin Normal limit 0 Total 4 I personally scribed for ANGELICA MANCILLA DO ([email or web address]) on 05/09/25 at 04:33. Elect ronically submitted by Antoine Gonzalez ([facility]). I personally scribed for ANGELICA MANCILLA DO ([facility]) on 05/09/25 at 04:53. El ectronically submitted by Antoine Gonzalez ([facility]). ANGELICA MANCILLA DO May 09, 2025 04:33
[2025-05-09 04:50] VITALS: PULSE 133; RESP 20; O2SAT 98
[2025-05-09] MEDS: InsuLIN REG 1unit/0.01ml Soln (100units/ml) IV ONE (05:16)
[2025-05-09] MEDS: SODIUM CHLORIDE 0.9% 1,000 ML IV SCH ×3 (05:16→09:01)
[2025-05-09] MEDS: INSULIN DRIP 100 UNIT/100ML 100 ML IV SCH (05:17)
[2025-05-09] MEDS: ACCU-CHEK COMFORT CURVE STRIP VI SCH (05:18)
[2025-05-09] MEDS: ONDANSETRON HCL 4 MG/2 ML VIAL IV ONE (05:18)
[2025-05-09] MEDS: ONDANSETRON HCL 4 MG/2 ML VIAL ONE (05:18)
--- NOTE | 2025-05-09 05:34 | DVH ---
CHEST RADIOGRAPH Indication: dka, sob Technique: Single frontal view of the chest was obtained COMPARISON: XY CHEST PORTABLE on DOS: 12/11/23, XY CHEST PORTABLE on DOS: 10/28/23, XY CHEST XRAY 1 VIEW on DOS: 09/30/23, XY CHEST XRAY 1 VIEW on DOS: 07/25/23, XY CHEST PORTABLE on DOS: 12/09/22 FINDINGS: Lines and Tubes: None Lungs: Clear Pleura: No effusion. No pneumothorax. Cardiomediastinal contours: Unremarkable Bones: Unremarkable IMPRESSION: 1. No acute disease.
[2025-05-09] MEDS: SODIUM BICARB 8.4% 50Meq/50ml SYR Vial IV ONE (05:48)
[2025-05-09 06:09] LABS: Hemoglobin 13.4 g/dL (12.2-16.2)
[2025-05-09 06:15] LABS: Hematocrit 43.5 % (36.0-46.0); Mean Corpuscular Hemoglobin 27.6 pg (28.0-32.0); Mean Corpuscular Volume 89.5 fL (80.0-100.0)
[2025-05-09 06:25] LABS: Chloride 103 mmol/L (98-107); Potassium 4.1 mmol/L (3.5-5.1); Sodium 141 mmol/L (136-145)
[2025-05-09 06:27] LABS: Calcium 9.6 mg/dL (8.7-10.4)
[2025-05-09 06:32] LABS: Anion Gap 28.00001 (5-15); BUN/Creatinine Ratio 8.2 (10.0-20.0); Blood Urea Nitrogen 15 mg/dL (9-23); Magnesium 2.4 mg/dL (1.6-2.6)
[2025-05-09 06:34] LABS: Carbon Dioxide < 10 mmol/L (20-31); Glucose 618 mg/dL (74-106)
[2025-05-09 06:41] LABS: Total Cells Counted 100.0 (100)
[2025-05-09 07:25] VITALS: PULSE 130; RESP 14; O2SAT 98
--- NOTE | 2025-05-09 08:19 | DVHHP2 ---
History of Present Illness Reason for Visit: Shortness of the breath nausea and vomiting going through DKA History of Present Illness 19-year-old female type 1 diabetes DKA in the past denies any surgical history chief complaint patient states since yesterday she has been having some nausea or vomiting not able to keep anything down she states that she has been taking her insulin as scheduled she states she feels like she is going through a DKA attack like the one she had last year when she arrived at our hospital patient currently denies any abdominal pain when she does have a lot of vomiting without any blood she denies any chest pain no shortness with the breath no diarrhea when evaluating patient's labs and imaging normal saline was provided ceftriaxone bicarb was given insulin drip was started patient had symptoms of DKA white count was 30.6 platelet count was 583 pH was 7.17 and 73 CO2 was less than 14 in the ABG CO2 and Labs was less than 10 gap was 28 creatinine was 1.84 glucose was greater than 600 phosphatase 6.4 beta age was 4.5 greater than that chest x-ray was unremarkable. With these findings we will admit patient for ICU for DKA treatment Past Medical History See HPI above Past Surgical History See HPI above Family History Reviewed, non-contributory to the management of this case. Past Social History The patient lives at home, denies smoking, alcohol or illicit drugs abuse. Review of Systems Constitutional: No: Fever, Chills, Sweats, Weakness, Malaise, Other Eyes: No: Pain, Vision change, Conjunctivae inflammation, Eyelid inflammation, Other, Redness ENT: No: Ear pain, Ear discharge, Nose pain, Nose discharge, Nose congestion, Mouth pain, Mouth swelling, Throat pain, Throat swelling, Other Respiratory: No: Cough, Dry, Shortness of breath, SOB with excertion, Wheezing, Hemoptysis, Pleuritic Pain, Sputum, Wheezing, Other Cardiovascular: No: Chest Pain, Palpitations, Orthopnea, Paroxysmal Noc. Dyspnea, Edema, Lt Headedness, Other Gastrointestinal: Nausea, Vomiting, Abdominal Pain Genitourinary: No Dysuria, No Frequency, No Incontinence, No Hematuria, No Retention, No Other Musculoskeletal: No: other, neck pain, shoulder pain, arm pain, back pain, hand pain, leg pain, foot pain Skin: No: Rash, Lesions, Jaundice, Bruising, Other Neurological: Weakness; No: Numbness, Incoordination, Change in speech, Confusion, Seizures, Other Allergies: Coded Allergies: NO KNOWN ALLERGIES (Unverified , 08/21/22) Medications Current Medications Medications Dose Ordered Sig/Martha Route Start Time Stop Time Status Last Admin Dose Admin Sodium Chloride 1,000 ml @ 500 mls/hr Q2H IV 05/09/25 04:30 05/09/25 08:29 05/09/25 06:48 500 MLS/HR Sodium Chloride 1,000 ml @ 250 mls/hr Q4H IV 05/09/25 08:30 05/09/25 10:29 Sodium Chloride 1,000 ml @ 150 mls/hr Q6H40M IV 05/09/25 10:30 Insulin Human (Reg)/Sodium Chloride 100 ml @ 0.5 mls/hr Q24H IV 05/09/25 04:30 05/09/25 05:17 6 MLS/HR Dextrose 50 ml UD PRN IV 05/09/25 04:30 Diagnostic Test (Pha) 1 strip Q90MIN 05/09/25 04:30 05/09/25 07:49 1 STRIP Exam Vital Signs Vital Signs Date Time Temp Pulse Resp B/P (MAP) Pulse Ox O2 Delivery O2 Flow Rate FiO2 05/09/25 06:30 124 13 132/95 (107) 98 05/09/25 04:50 97.8 97.8 05/09/25 04:50 Room Air* 0 21 General Appearance: Alert, Oriented X3, Cooperative, No acute distress HEENT: Atraumatic, PERRLA, EOMI, Mucous membr. moist/pink Respiratory: Clear to auscultation, Normal air movement Cardiovascular: Regular rate, Normal S1, Normal S2, No murmurs Abdominal: Normal bowel sounds, Soft, No tenderness, No hepatospenomegaly, No masses Extremities: No clubbing, No cyanosis, No edema, Normal pulses, No tenderness/swelling Skin: No rashes, No breakdown, No significant lesion Neuro: Normal gait, Normal speech, Strength at 5/5 X4 ext, Normal tone, Sens ation intact, Cranial nerves 3-12 NL Psych/Mental Status: Mental status NL, Mood NL Labs/Xrays Chest x-ray unremarkable I reviewed labs, imaging CT scan abdomen pelvis, EKG and all diagnostic studies on this patient from ED records and the medical chart Labs Test 05/09/25 07:51 05/09/25 05:49 05/09/25 04:50 05/09/25 04:30 Range/Units POC Glucose 281 H 70-106 mg/dl White Blood Count 30.6 *H 4.4-10.8 10^3/uL Red Blood Count 4.86 4.0-5.20 10^6/uL Hemoglobin 13.4 12.2-16.2 g/dL Hematocrit 43.5 36.0-46.0 % Mean Corpuscular Volume 89.5 80.0-100.0 fL Mean Corpuscular Hemoglobin 27.6 L 28.0-32.0 pg Mean Corpuscular Hemoglobin Concent 30.9 L 32.0-36.0 g/dL Red Cell Distribution Width 17.5 H 11.8-14.3 % Platelet Count 583 H 140-450 10^3/uL Mean Platelet Volume 8.3 6.9-10.8 fL Neutrophils (%) (Auto) 37.0-80.0 % Lymphocytes (%) (Auto) 10.0-50.0 % Monocytes (%) (Auto) 0.0-12.0 % Basophils (%) (Auto) 0.0-2.0 % Neutrophils # (Auto) 1.6-8.6 10 ^3/uL Lymphocytes # (Auto) 0.4-5.4 10 ^3/uL Monocytes # (Auto) 0-1.3 10 ^3/uL Differential Total Cells Counted 100.0 100 Neutrophils % (Manual) 93 H 37.0-80.0 Band Neutrophils % (Manual) 0 Lymphocytes % (Manual) 4 L 10.0-50.0 Monocytes % (Manual) 3 0-12 Eosinophils % (Manual) 0 0-7 Basophils % (Manual) 0 0.0-2.0 Metamyelocytes % (manual) 0 Myelocytes % (Manual) 0 Promyelocytes % (Manual) 0 Blast Cells % (Manual) 0 Reactive Lymphocytes 0 Platelet Estimate Adequate Sodium Level 141 136-145 mmol/L Potassium Level 4.1 3.5-5.1 mmol/L Chloride Level 103 98-107 mmol/L Carbon Dioxide Level < 10 *L 20-31 mmol/L Anion Gap 28.71133 H 5-15 Blood Urea Nitrogen 15 9-23 mg/dL Creatinine 1.84 H 0.550-1.02 mg/dL Glomerular Filtration Rate Calc 40 >90 mL/min BUN/Creatinine Ratio 8.2 L 10.0-20.0 Serum Glucose 618 *H 74-106 mg/dL Calcium Level 9.6 8.7-10.4 mg/dL Phosphorus Level 6.4 H 2.4-5.1 mg/dL Magnesium Level 2.4 1.6-2.6 mg/dL Beta-Hydroxybutyric Acid > 4.500 H < 0.4 mmol/L Blood Gas Specimen Type Arterial Blood Gas Sample Site Left radial Blood Gas Patient Temperature 37.0 Arterial Blood Date Drawn [id number] Arterial Blood pH 7.173 *L 7.350-7.450 Arterial Blood Partial Pressure CO2 < 14.1 *L 32.0-45.0 mmHg Arterial Blood Oxygen Saturation 98.8 H 94.0-98.0 % Arterial Blood Oxyhemoglobin 98.0 94.0-98.0 % Arterial Blood Carboxyhemoglobin 0.2 L 0.5-1.5 % Arterial Blood Methemoglobin 0.6 0.0-1.5 % Darren Test Yes Blood Gas Total Hemoglobin 13.20 12.0-16.0 g/dL Blood Gas Modality Room air FiO2 % 21.0 Blood Gas Critical Value Read Back yes Blood Gas Notified Whom angelica Nice md Blood Gas Notified Time [id number] Blood Gas Notified By Needle Punch Machine Operator kuldeep angel Serum Osmolality 369 H 278-298 mOsm/kg SEPSIS Sepsis Screen Date sepsis recognized/suspect: May 09, 2025 Time Sepsis recognized/suspect: 620 Recent Procedure: No On Antibiotic Therapy: No Respiratory Rate >20: No Heart Rate >90: Yes Temp<36 C (96.8 F) or >38.3 C: No SBP <90 or MAP <65 mmHG: Yes New Acute Mental Status Change: No Is the patient on CPAP, BIPAP,: No Physician Orders Insulin Drip Protocol (05/09/25 ) Sodium Chloride 0.9% (05/09/25 04:30) Sodium Chloride 0.9% (05/09/25 08:30) Sodium Chloride 0.9% (05/09/25 10:30) Insulin Drip 100 Unit/100ml (Myxredlin 1 (05/09/25 04:30) Dextrose 50% Syringe (05/09/25 04:30) Glucose Blood (Accu-Chek Comfort Curve T (05/09/25 04:30) Abg W/ Co-Ox (05/09/25 04:21) Basic Metabolic Panel (05/09/25 10:21) Basic Metabolic Panel (05/09/25 16:21) Basic Metabolic Panel (05/09/25 22:21) Urinalysis (05/09/25 04:21) Neurological Assessment (05/09/25 04:21) Vs/Hemodynamics .PER UNIT PROTOCOL (05/09/25 04:21) Chest Portable (05/09/25 04:53) Ceftriaxone 1gm/50ml (Rocephin) (05/09/25 07:45) Complete Blood Count (05/09/25 07:36) Vital Signs Date Time Temp Pulse Resp B/P (MAP) Pulse Ox O2 Delivery O2 Flow Rate FiO2 05/09/25 06:30 124 13 132/95 (107) 98 05/09/25 04:50 97.8 133 18 93/45 (61) 98 97.8 05/09/25 04:50 133 20 98 Room Air* 0 21 05/09/25 04:13 97.3 144 25 103/62 95 97.3 Laboratory Tests Test 05/09/25 05:49 White Blood Count 30.6 10^3/uL (4.4-10.8) *H Medications Medications Dose Ordered Sig/Martha Route Start Time Stop Time Status Last Admin Dose Admin Ceftriaxone Sodium 50 ml @ 100 mls/hr ONCE ONCE IV 05/09/25 07:45 05/09/25 08:14 05/09/25 07:58 100 MLS/HR Diagnostic Test (Pha) 1 strip Q90MIN 05/09/25 04:30 05/09/25 07:49 1 STRIP Insulin Human (Reg)/Sodium Chloride 100 ml @ 0.5 mls/hr Q24H IV 05/09/25 04:30 05/09/25 05:17 6 MLS/HR Insulin Human Regular 10 units ONCE ONCE IV 05/09/25 04:30 05/09/25 04:31 DC 05/09/25 05:16 10 UNITS Ondansetron HCl 8 mg ONCE ONCE IV 05/09/25 05:15 05/09/25 05:17 DC 05/09/25 05:18 8 MG Sodium Bicarbonate 150 ml ONCE ONCE IV 05/09/25 05:00 05/09/25 05:01 DC 05/09/25 05:48 150 ML Sodium Chloride 1,000 ml @ 500 mls/hr Q2H IV 05/09/25 04:30 05/09/25 08:29 05/09/25 06:48 500 MLS/HR Assessment/Plan Assessment/Plan Acute DKA without coma history of type 1 diabetes beta oh elevated, gap elevated bicarb low, beta OH >4.5 and glucose >600 IV hydration ns 3L ) provided in er Initiated DKA protocol in er Every hour Accu-Check for now Administer sodium bicarb if pH less than 6.9 BMP every 6 hours Replace electrolyte as needed Repeat ABG now NPO for now until glucose improves cont insulin drip until glucose improves and no longer in dka Monitor sodium when c02 >18 will need to stop insulin drip when glucose <250 start d51/2ns 20meq 125/mlhr cont ns ivf for now acute metabolic acidosis likely in setting of acute dka found on last abg and current labs ordered abg q6h for now start bicarb drip if PH <6.9 monitor for worsening numbers acute severe leukocytosis likely in setting of severe dehydration consider blood cultures and infectious workup up if with fever fu lactate cxr normal Acute intractable vomiting Order Zofran and Reglan Continue DKA treatment Continue IV fluids for now acute latasha likely from dehydration from dka ordered iv hydration fu crea in am Acute tachycardia in setting of dka cont ivf hydration monitor chronic problems type 1 dm dka fen/ppx lovenox npo protonix ivf insulin drip plan admit to icu for management of dka Plan discussed with: Patient Date of Service: May 09, 2025 Billing Provider: MARIA G THRASHER DNP Common Visit Codes: [id number] INP/OBS CARE (HIGH), [id number] CARE 30- 74 MIN (Total critical care time: Approximately 45 minutes This critical care time included obtaining a history; examining the patient; pulse oximetry; ordering and review of studies; arranging urgent treatment with development of a management plan; evaluation of patient's response to treatment; frequent reassessment; and, discussions with other providers.) MARIA G THRASHER DNP May 09, 2025 08:19
[2025-05-09 08:27] LABS: Mean Corpuscular Hemoglobin 27.4 pg (28.0-32.0)
[2025-05-09 08:28] LABS: Hematocrit 39.1 % (36.0-46.0); Hemoglobin 12.9 g/dL (12.2-16.2); Mean Corpuscular Volume 82.8 fL (80.0-100.0)
[2025-05-09] MEDS ORDERED: ONDANSETRON HCL 4 MG/2 ML VIAL IV PRN (08:30)
[2025-05-09] MEDS ORDERED: DOCUSATE SOD 100 MG CAP PO PRN (08:30)
[2025-05-09 08:41] LABS: RBC Morphology Normal; Total Cells Counted 100.0 (100)
[2025-05-09 08:47] LABS: Base Excess -7.4 mmol/L (-2.0-3.0)
[2025-05-09] MEDS: PANTOPRAZOLE 40 MG/10 ML VIAL INJ IV ONE (09:32)
[2025-05-09] MEDS: METOCLOPRAMIDE HCL 5MG/ml INJ 2ml VIAL IV ONE ×2 (09:32→10:05)
[2025-05-09] MEDS ORDERED: NITROGLYCERIN 0.4 MG SL TAB SL PRN (09:45)
[2025-05-09] MEDS: MORPHINE SULFATE INJ 2 MG/ml SYRG IV PRN (09:50)
[2025-05-09] MEDS ORDERED: SODIUM CHLORIDE 0.9% 1,000 ML IV SCH (10:30)
[2025-05-09] MEDS: ENOXAPARIN SOD 40 MG/0.4 ML SYRINGE SC SCH (10:47)
[2025-05-09 11:21] LABS: Anion Gap 21 (5-15); Calcium 9.2 mg/dL (8.7-10.4)
[2025-05-09 11:24] LABS: Carbon Dioxide 17 mmol/L (20-31); Chloride 114 mmol/L (98-107); Potassium 3.4 mmol/L (3.5-5.1); Sodium 152 mmol/L (136-145)
[2025-05-09 11:26] LABS: BUN/Creatinine Ratio 11.4 (10.0-20.0); Blood Urea Nitrogen 15 mg/dL (9-23)
[2025-05-09 11:27] LABS: Glucose 171 mg/dL (74-106)
[2025-05-09] MEDS: METOCLOPRAMIDE HCL 5MG/ml INJ 2ml VIAL IV SCH (12:06)
[2025-05-09 12:16] LABS: Anion Gap 19 (5-15); Calcium 9.0 mg/dL (8.7-10.4)
[2025-05-09 12:20] LABS: Carbon Dioxide 17 mmol/L (20-31); Chloride 116 mmol/L (98-107); Potassium 3.5 mmol/L (3.5-5.1); Sodium 152 mmol/L (136-145)
[2025-05-09 12:21] LABS: BUN/Creatinine Ratio 11.5 (10.0-20.0); Blood Urea Nitrogen 14 mg/dL (9-23)
[2025-05-09 12:22] LABS: Glucose 147 mg/dL (74-106)
[2025-05-09 16:52] LABS: Anion Gap 18 (5-15)
[2025-05-09 16:53] LABS: Calcium 8.7 mg/dL (8.7-10.4)
[2025-05-09 16:54] LABS: Carbon Dioxide 18 mmol/L (20-31); Chloride 116 mmol/L (98-107); Potassium 3.5 mmol/L (3.5-5.1); Sodium 152 mmol/L (136-145)
[2025-05-09 16:57] LABS: BUN/Creatinine Ratio 12.0 (10.0-20.0); Blood Urea Nitrogen 14 mg/dL (9-23)
[2025-05-09 17:03] LABS: Glucose 158 mg/dL (74-106)
[2025-05-09] MEDS: D5W/SOD CHL 0.45% 1,000 ML IV SCH ×2 (17:15→22:45)
[2025-05-09 18:23] LABS: Base Excess -7.5 mmol/L (-2.0-3.0)
[2025-05-09 18:56] LABS: Potassium 3.6 mmol/L (3.5-5.1)
[2025-05-09 18:57] LABS: Anion Gap 19 (5-15); Calcium 9.1 mg/dL (8.7-10.4)
[2025-05-09 19:00] LABS: Carbon Dioxide 17 mmol/L (20-31); Chloride 115 mmol/L (98-107); Sodium 151 mmol/L (136-145)
[2025-05-09 19:02] LABS: BUN/Creatinine Ratio 15.1 (10.0-20.0); Blood Urea Nitrogen 18 mg/dL (9-23)
[2025-05-09 19:12] LABS: Glucose 169 mg/dL (74-106)
[2025-05-09 20:23] VITALS: PULSE 122; RESP 21; O2SAT 100
[2025-05-09 21:21] LABS: Urine Protein, UAD 1+ (Negative)
[2025-05-09 22:42] LABS: Anion Gap 14 (5-15); Carbon Dioxide 21 mmol/L (20-31)
[2025-05-09 22:43] LABS: Calcium 8.9 mg/dL (8.7-10.4)
[2025-05-09] MEDS: INSULIN LANTUS (GLARGINE) 1 /0.01ml (100units/ml) SC ONE (22:45)
[2025-05-09 22:48] LABS: BUN/Creatinine Ratio 10.3 (10.0-20.0); Blood Urea Nitrogen 12 mg/dL (9-23)
[2025-05-09 22:49] LABS: Chloride 114 mmol/L (98-107); Glucose 154 mg/dL (74-106); Potassium 3.5 mmol/L (3.5-5.1); Sodium 149 mmol/L (136-145)
[2025-05-10] VITALS (7 sets, daily range): BP systolic 121–130; BP diastolic 84–94; PULSE 77–116; RESP 12–18; TEMP 98.2–98.3; O2SAT 97–98
[2025-05-10 00:33] LABS: Anion Gap 13 (5-15); Carbon Dioxide 22 mmol/L (20-31)
[2025-05-10 00:34] LABS: Calcium 8.6 mg/dL (8.7-10.4); Chloride 114 mmol/L (98-107); Potassium 3.0 mmol/L (3.5-5.1); Sodium 149 mmol/L (136-145)
[2025-05-10 00:38] LABS: BUN/Creatinine Ratio 10.6 (10.0-20.0); Blood Urea Nitrogen 11 mg/dL (9-23)
[2025-05-10 00:39] LABS: Glucose 151 mg/dL (74-106)
[2025-05-10 05:19] LABS: Hematocrit 32.7 % (36.0-46.0); Hemoglobin 11.0 g/dL (12.2-16.2); Mean Corpuscular Hemoglobin 27.6 pg (28.0-32.0); Mean Corpuscular Volume 81.7 fL (80.0-100.0); Nucleated Red Blood Cells % 0.0 %
[2025-05-10 05:34] LABS: Albumin 3.8 g/dL (3.2-4.8); Alkaline Phosphatase 97 U/L (46-116); Anion Gap 14 (5-15); BUN/Creatinine Ratio 10.8 (10.0-20.0); Blood Urea Nitrogen 11 mg/dL (9-23); Calcium 8.9 mg/dL (8.7-10.4); Carbon Dioxide 20 mmol/L (20-31); Chloride 114 mmol/L (98-107); Glucose 186 mg/dL (74-106); Potassium 3.1 mmol/L (3.5-5.1); Sodium 148 mmol/L (136-145); Total Protein 6.7 g/dL (5.7-8.2)
[2025-05-10 05:35] LABS: Alanine Aminotransferase < 9 U/L (7-40); Bilirubin, Total 0.3 mg/dL (0.2-1.0)
[2025-05-10] MEDS ORDERED: DEXTROSE (50%) 50ML SYRG IV PRN (07:00)
[2025-05-10] MEDS: ACCU-CHEK COMFORT CURVE STRIP VI SCH (08:01)
[2025-05-10] MEDS: InsuLIN REG 1unit/0.01ml Soln (100units/ml) SC SCH (08:04)
[2025-05-10] MEDS: PANTOPRAZOLE 40 MG/10 ML VIAL INJ IV SCH (09:17)
[2025-05-10] MEDS: INSULIN LANTUS (GLARGINE) 1 /0.01ml (100units/ml) SC SCH ×2 (09:17→21:42)
[2025-05-10 12:24] LABS: Sodium 144 mmol/L (136-145)
[2025-05-10 12:25] LABS: Anion Gap 12 (5-15); Carbon Dioxide 22 mmol/L (20-31)
[2025-05-10 12:26] LABS: Calcium 9.1 mg/dL (8.7-10.4); Chloride 110 mmol/L (98-107); Potassium 3.0 mmol/L (3.5-5.1)
[2025-05-10 12:30] LABS: BUN/Creatinine Ratio 13.8 (10.0-20.0); Blood Urea Nitrogen 13 mg/dL (9-23)
[2025-05-10 13:21] LABS: Glucose 264 mg/dL (74-106)
[2025-05-10] MEDS: POTASSIUM CHL 20 Meq TABLET PO SCH (16:37)
--- NOTE | 2025-05-10 18:21 | DVHPN2 ---
Subjective Assuming the care of the patient from today onwards. Patient is currently on insulin drip. Changes from previous H/P or p: No Changes Eyes: No Pain, No Vision change, No Conjunctivae inflammation, No Eyelid inflammation, No Other, No Redness ENT: No Ear pain, No Ear discharge, No Nose pain, No Nose discharge, No Nose congestion, No Mouth pain, No Mouth swelling, No Throat pain, No Throat swelling, No Other Cardiovascular: No Chest Pain, No Palpitations, No Orthopnea, No Paroxysmal Noc. Dyspnea, No Edema, No Lt Headedness, No Other Respiratory: No Cough, No Dry, No Shortness of breath, No SOB with excertion, No Wheezing, No Hemoptysis, No Pleuritic Pain, No Sputum, No Other Gastrointestinal: Nausea, Vomiting, Abdominal Pain Genitourinary: No Dysuria, No Frequency, No Incontinence, No Hematuria, No Retention, No Other Musculoskeletal: No other, No neck pain, No shoulder pain, No arm pain, No back pain, No hand pain, No leg pain, No foot pain Skin: No Rash, No Lesions, No Jaundice, No Bruising, No Other Objective Vitals Vital Signs Date Time Temp Pulse Resp B/P (MAP) Pulse Ox O2 Delivery O2 Flow Rate FiO2 05/10/25 16:07 98.2 88 18 130/94 (106) 98 98.2 05/10/25 09:21 Room Air* 0 21 Intake/Output Intake and Output 05/10/25 07:00 Intake Total 2519.50 ml Output Total 200 ml Balance 2319.50 ml IV Total 2519.50 ml Emesis 200 ml Exam HEENT pupils are reactive Neck is supple CV is S1-S2 regular rate and rhythm Respiratory diminished breath sounds bases GI positive bowel sound, nondistended nontender no guarding no rigidity. 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 no motor deficit Medications Current Medications Medications Dose Ordered Sig/Martha Route Start Time Stop Time Status Last Admin Dose Admin Ondansetron HCl 4 mg Q4HP PRN IV 05/09/25 08:30 Docusate Sodium 100 mg BIDPRN PRN PO 05/09/25 08:30 Enoxaparin Sodium 40 mg DAILY SC 05/09/25 10:00 05/10/25 09:13 40 MG Morphine Sulfate 2 mg Q4HPRN PRN IV 05/09/25 08:30 05/09/25 09:50 2 MG Pantoprazole Sodium 40 mg DAILY IV 05/10/25 10:00 Nitroglycerin 0.4 mg Q5MINP PRN SL 05/09/25 09:45 Metoclopramide HCl 10 mg Q6HR IV 05/09/25 12:00 05/10/25 11:24 10 MG Diagnostic Test (Pha) 1 strip IQ4HR 05/10/25 08:00 05/10/25 16:00 1 STRIP Insulin Human Regular IQ4HR SC 05/10/25 08:00 05/10/25 11:25 6 UNITS Dextrose 50 ml UD PRN IV 05/10/25 07:00 Insulin Glargine 30 units BID@1000,2200 SC 05/10/25 22:00 Potassium Chloride 20 meq Q2H PO 05/10/25 16:00 05/10/25 20:01 05/10/25 16:37 20 MEQ Laboratory Results Laboratory Tests 05/10/25 04:58 05/10/25 12:00 Chemistry Test 05/09/25 18:22 05/09/25 22:24 05/10/25 00:15 05/10/25 04:58 Calcium Level 9.1 mg/dL (8.7-10.4) 8.9 mg/dL (8.7-10.4) 8.6 mg/dL (8.7-10.4) L 8.9 mg/dL (8.7-10.4) Albumin 3.8 g/dL (3.2-4.8) Total Protein 6.7 g/dL (5.7-8.2) Test 05/10/25 12:00 Calcium Level 9.1 mg/dL (8.7-10.4) LFT Test 05/10/25 04:58 Alanine Aminotransferase (ALT) < 9 U/L (7-40) Alkaline Phosphatase 97 U/L (46-116) Aspartate Amino Transferase (AST) 11 U/L (13-40) L Total Bilirubin 0.3 mg/dL (0.2-1.0) Urinalysis Test 05/09/25 20:55 Urine Color Light-yellow (Yellow) Urine Clarity Clear (Clear) Urine pH 6.0 (5.0-9.0) Urine Specific Rowan 1.021 (1.001-1.035) Urine Protein 1+ (Negative) H Urine Ketones 4+ (Negative) H Urine Blood Trace /uL (Negative) H Urine Nitrite Negative (Negative) Urine Bilirubin Negative (Negative) Urine Urobilinogen Normal mg/dL (Negative) Urine Leukocyte Esterase 1+ /uL (Negative) Urine RBC 2 /hpf (0 - 4) Urine Microscopic WBC 2 /HPF (0-5) Urine Squamous Epithelial Cells Few /hpf (<5) Urine Bacteria None seen /hpf (None Seen) Urine Hyaline Casts Few /lpf (0 - 2) Urine Mucus Few (None Seen) Urine Glucose 4+ mg/dL (Normal) H Assessment/Plan Assessment/Plan 19-year-old young female with a known history of insulin-dependent diabetes mellitus type 1 presented to the hospital with a intractable nausea and vomiting found to have 1. Intractable nausea and vomiting secondary to diabetic ketoacidosis 2. Diabetic ketoacidosis 3. Type 1 diabetes mellitus 4. Metabolic acidosis secondary to DKA 5. Acute kidney injury suspected secondary to vasomotor nephropathy 6. Elevated leukocytosis likely reactive secondary to severe dehydration -IV fluids diet as tolerated current, once insulin drip is off patient can be transferred to tele floor. Plan discussed with: Patient My Orders Orders - STACI MORENO MD Procedure Category Date Status Time Insulin Lantus PHA 05/10/25 In Process (Glargine) (Lantus) 22:00 Potassium Er Tablet PHA 05/10/25 In Process (Klor-Con Tablet) 16:00 Date of Service: May 10, 2025 Billing Provider: STACI MORENO MD Common Visit Codes: [id number] INP/OBS CARE(MOD) STACI MORENO MD May 10, 2025 18:21
[2025-05-10 18:44] LABS: Sodium 144 mmol/L (136-145)
[2025-05-10 18:45] LABS: Anion Gap 11 (5-15); Carbon Dioxide 25 mmol/L (20-31)
[2025-05-10 18:46] LABS: Calcium 9.2 mg/dL (8.7-10.4)
[2025-05-10 18:51] LABS: Chloride 108 mmol/L (98-107); Glucose 167 mg/dL (74-106); Potassium 3.0 mmol/L (3.5-5.1)
[2025-05-10 18:52] LABS: BUN/Creatinine Ratio 18.9 (10.0-20.0); Blood Urea Nitrogen 14 mg/dL (9-23)
[2025-05-11] VITALS (8 sets, daily range): BP systolic 107–127; BP diastolic 56–89; PULSE 77–139; RESP 17–20; TEMP 97.7–99.1; O2SAT 97–100
[2025-05-11 11:27] LABS: Hematocrit 33.6 % (36.0-46.0); Hemoglobin 11.4 g/dL (12.2-16.2); Mean Corpuscular Hemoglobin 27.7 pg (28.0-32.0); Mean Corpuscular Volume 82.0 fL (80.0-100.0); Nucleated Red Blood Cells % 0.1 %
[2025-05-11 11:33] LABS: Albumin 3.8 g/dL (3.2-4.8); Alkaline Phosphatase 98 U/L (46-116); Anion Gap 12 (5-15); BUN/Creatinine Ratio 21.2 (10.0-20.0); Blood Urea Nitrogen 14 mg/dL (9-23); Calcium 9.0 mg/dL (8.7-10.4); Carbon Dioxide 24 mmol/L (20-31); Chloride 107 mmol/L (98-107); Sodium 143 mmol/L (136-145); Total Protein 6.6 g/dL (5.7-8.2)
[2025-05-11 11:38] LABS: Alanine Aminotransferase < 9 U/L (7-40); Bilirubin, Total 0.3 mg/dL (0.2-1.0); Glucose 273 mg/dL (74-106); Potassium 3.1 mmol/L (3.5-5.1)
[2025-05-11] MEDS: POTASSIUM EFFERVESENT TAB 25 MEQ PO ONE (17:25)
[2025-05-11] MEDS: POTASSIUM EFFERVESENT TAB 25 MEQ ONE (17:28)
--- NOTE | 2025-05-11 19:04 | DVHPN2 ---
Subjective Patient denies any complaints, currently blood cultures are pending. Changes from previous H/P or p: No Changes Eyes: No Pain, No Vision change, No Conjunctivae inflammation, No Eyelid inflammation, No Other, No Redness ENT: No Ear pain, No Ear discharge, No Nose pain, No Nose discharge, No Nose congestion, No Mouth pain, No Mouth swelling, No Throat pain, No Throat swelling, No Other Cardiovascular: No Chest Pain, No Palpitations, No Orthopnea, No Paroxysmal Noc. Dyspnea, No Edema, No Lt Headedness, No Other Respiratory: No Cough, No Dry, No Shortness of breath, No SOB with excertion, No Wheezing, No Hemoptysis, No Pleuritic Pain, No Sputum, No Other Gastrointestinal: Nausea, Vomiting, Abdominal Pain Genitourinary: No Dysuria, No Frequency, No Incontinence, No Hematuria, No Retention, No Other Musculoskeletal: No other, No neck pain, No shoulder pain, No arm pain, No back pain, No hand pain, No leg pain, No foot pain Skin: No Rash, No Lesions, No Jaundice, No Bruising, No Other Objective Vitals Vital Signs Date Time Temp Pulse Resp B/P (MAP) Pulse Ox O2 Delivery O2 Flow Rate FiO2 05/11/25 17:00 98.1 91 20 127/89 (102) 97 98.1 05/11/25 08:00 Room Air* 0 21 Intake/Output Intake and Output 05/11/25 07:00 Intake Total 2775 ml Output Total 602 ml Balance 2173 ml Intake Oral 2775 ml Output Urine Total 600 ml Urine/Stool Mix 2 ml # Voids 1 # Bowel Movements 3 Exam HEENT pupils are reactive Neck is supple CV is S1-S2 regular rate and rhythm Respiratory diminished breath sounds bases GI positive bowel sound, nondistended nontender no guarding no rigidity. 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 Medications Current Medications Medications Dose Ordered Sig/Martha Route Start Time Stop Time Status Last Admin Dose Admin Ondansetron HCl 4 mg Q4HP PRN IV 05/09/25 08:30 Docusate Sodium 100 mg BIDPRN PRN PO 05/09/25 08:30 Enoxaparin Sodium 40 mg DAILY SC 05/09/25 10:00 05/10/25 09:13 40 MG Morphine Sulfate 2 mg Q4HPRN PRN IV 05/09/25 08:30 05/09/25 09:50 2 MG Pantoprazole Sodium 40 mg DAILY IV 05/10/25 10:00 05/11/25 09:50 40 MG Nitroglycerin 0.4 mg Q5MINP PRN SL 05/09/25 09:45 Metoclopramide HCl 10 mg Q6HR IV 05/09/25 12:00 05/11/25 12:26 10 MG Diagnostic Test (Pha) 1 strip IQ4HR 05/10/25 08:00 05/11/25 16:00 1 STRIP Insulin Human Regular IQ4HR SC 05/10/25 08:00 05/11/25 17:18 3 UNITS Dextrose 50 ml UD PRN IV 05/10/25 07:00 Insulin Glargine 30 units BID@1000,2200 [place] 05/10/25 22:00 05/11/25 11:37 30 UNITS Laboratory Results Laboratory Tests 05/11/25 10:26 Chemistry Test 05/11/25 10:26 Albumin 3.8 g/dL (3.2-4.8) Calcium Level 9.0 mg/dL (8.7-10.4) Total Protein 6.6 g/dL (5.7-8.2) LFT Test 05/11/25 10:26 Alanine Aminotransferase (ALT) < 9 U/L (7-40) Alkaline Phosphatase 98 U/L (46-116) Aspartate Amino Transferase (AST) 12 U/L (13-40) L Total Bilirubin 0.3 mg/dL (0.2-1.0) Urinalysis Test 05/09/25 20:55 Urine Color Light-yellow (Yellow) Urine Clarity Clear (Clear) Urine pH 6.0 (5.0-9.0) Urine Specific Noti 1.021 (1.001-1.035) Urine Protein 1+ (Negative) H Urine Ketones 4+ (Negative) H Urine Blood Trace /uL (Negative) H Urine Nitrite Negative (Negative) Urine Bilirubin Negative (Negative) Urine Urobilinogen Normal mg/dL (Negative) Urine Leukocyte Esterase 1+ /uL (Negative) Urine RBC 2 /hpf (0 - 4) Urine Microscopic WBC 2 /HPF (0-5) Urine Squamous Epithelial Cells Few /hpf (<5) Urine Bacteria None seen /hpf (None Seen) Urine Hyaline Casts Few /lpf (0 - 2) Urine Mucus Few (None Seen) Urine Glucose 4+ mg/dL (Normal) H Assessment/Plan Assessment/Plan 19-year-old young female with a known history of insulin-dependent diabetes mellitus type 1 presented to the hospital with a intractable nausea and vomiting found to have 1. Intractable nausea and vomiting secondary to diabetic ketoacidosis 2. Diabetic ketoacidosis 3. Type 1 diabetes mellitus 4. Metabolic acidosis secondary to DKA 5. Acute kidney injury suspected secondary to vasomotor nephropathy 6. Elevated leukocytosis likely reactive secondary to severe dehydration -IV fluids diet as tolerated , long-acting insulin, follow up blood cultures Plan discussed with: Patient My Orders Orders - STACI MORENO MD Procedure Category Date Status Time Blood Culture KACIE 05/11/25 In Process 15:24 Date of Service: May 11, 2025 Billing Provider: STACI MORENO MD Common Visit Codes: [id number] INP/OBS CARE(MOD) STACI MORENO MD May 11, 2025 19:04
[2025-05-12] VITALS (8 sets, daily range): BP systolic 110–124; BP diastolic 74–88; PULSE 86–110; RESP 17–20; TEMP 36.8; O2SAT 98–100
--- NOTE | 2025-05-12 16:29 | DVHDS2 ---
Discharge Summary Date of Admission May 09, 2025 at 09:35 Date of Discharge: May 12, 2025 Labs/Diagnostic Data: Laboratory Results Test 05/12/25 15:29 05/11/25 10:26 05/09/25 20:55 05/09/25 18:08 POC Glucose 85 mg/dl (70-106) White Blood Count 6.3 10^3/uL (4.4-10.8) Red Blood Count 4.10 10^6/uL (4.0-5.20) Hemoglobin 11.4 g/dL (12.2-16.2) Hematocrit 33.6 % (36.0-46.0) Mean Corpuscular Volume 82.0 fL (80.0-100.0) Mean Corpuscular Hemoglobin 27.7 pg (28.0-32.0) Mean Corpuscular Hemoglobin Concent 33.8 g/dL (32.0-36.0) Red Cell Distribution Width 17.2 % (11.8-14.3) Platelet Count 382 10^3/uL (140-450) Mean Platelet Volume 7.7 fL (6.9-10.8) Neutrophils (%) (Auto) 71.7 % (37.0-80.0) Lymphocytes (%) (Auto) 15.0 % (10.0-50.0) Monocytes (%) (Auto) 9.2 % (0.0-12.0) Eosinophils (%) (Auto) 3.9 % (0.0-7.0) Basophils (%) (Auto) 0.2 % (0.0-2.0) Neutrophils # (Auto) 4.5 10 ^3/uL (1.6-8.6) Lymphocytes # (Auto) 0.9 10 ^3/uL (0.4-5.4) Monocytes # (Auto) 0.6 10 ^3/uL (0-1.3) Eosinophils # (Auto) 0.2 10 ^3/uL (0-0.8) Basophils # (Auto) 0 10 ^3/uL (0-0.2) Nucleated Red Blood Cells 0.1 % Sodium Level 143 mmol/L (136-145) Potassium Level 3.1 mmol/L (3.5-5.1) Chloride Level 107 mmol/L (98-107) Carbon Dioxide Level 24 mmol/L (20-31) Anion Gap 12 (5-15) Blood Urea Nitrogen 14 mg/dL (9-23) Creatinine 0.66 mg/dL (0.550-1.02) Glomerular Filtration Rate Calc 128 mL/min (>90) BUN/Creatinine Ratio 21.2 (10.0-20.0) Serum Glucose 273 mg/dL (74-106) Calcium Level 9.0 mg/dL (8.7-10.4) Total Bilirubin 0.3 mg/dL (0.2-1.0) Aspartate Amino Transferase (AST) 12 U/L (13-40) Alanine Aminotransferase (ALT) < 9 U/L (7-40) Alkaline Phosphatase 98 U/L (46-116) Total Protein 6.6 g/dL (5.7-8.2) Albumin 3.8 g/dL (3.2-4.8) Urine Color Light-yellow (Yellow) Urine Clarity Clear (Clear) Urine pH 6.0 (5.0-9.0) Urine Specific [place] 1.021 (1.001-1.035) Urine Protein 1+ (Negative) Urine Ketones 4+ (Negative) Urine Blood Trace /uL (Negative) Urine Nitrite Negative (Negative) Urine Bilirubin Negative (Negative) Urine Urobilinogen Normal mg/dL (Negative) Urine Leukocyte Esterase 1+ /uL (Negative) Urine RBC 2 /hpf (0 - 4) Urine Microscopic WBC 2 /HPF (0-5) Urine Squamous Epithelial Cells Few /hpf (<5) Urine Bacteria None seen /hpf (None Seen) Urine Hyaline Casts Few /lpf (0 - 2) Urine Mucus Few (None Seen) Urine Glucose 4+ mg/dL (Normal) Blood Gas Specimen Type Arterial Blood Gas Sample Site Left radial Blood Gas Patient Temperature 37.0 Arterial Blood Date Drawn [id number] Arterial Blood pH 7.341 (7.350-7.450) Arterial Blood Partial Pressure CO2 32.6 mmHg (32.0-45.0) Arterial Blood Partial Pressure O2 46.6 mmHg (83.0-108.0) Arterial Blood HCO3 17.2 mmol/L (21.0-28.0) Arterial Blood Oxygen Saturation 82.0 % (94.0-98.0) Arterial Blood Base Excess -7.5 mmol/L (-2.0-3.0) Arterial Blood Oxyhemoglobin 80.9 % (94.0-98.0) Arterial Blood Carboxyhemoglobin 0.6 % (0.5-1.5) Arterial Blood Methemoglobin 0.7 % (0.0-1.5) Darren Test Yes Blood Gas Total Hemoglobin 12.60 g/dL (12.0-16.0) Blood Gas Modality Room air FiO2 % 21.0 Blood Gas Critical Value Read Back Yes Blood Gas Notified Whom samuel Garcia Blood Gas Notified Time [id number] Blood Gas Notified By Multicraft Operator.raphael malcolm Test 05/09/25 08:04 05/09/25 05:49 05/09/25 04:30 Differential Total Cells Counted 100.0 (100) Neutrophils % (Manual) 93 (37.0-80.0) Band Neutrophils % (Manual) 1 Lymphocytes % (Manual) 4 (10.0-50.0) Monocytes % (Manual) 2 (0-12) Eosinophils % (Manual) 0 (0-7) Basophils % (Manual) 0 (0.0-2.0) Metamyelocytes % (manual) 0 Myelocytes % (Manual) 0 Promyelocytes % (Manual) 0 Blast Cells % (Manual) 0 Reactive Lymphocytes 0 Platelet Estimate Adequate Red Blood Cell Morphology Normal Phosphorus Level 6.4 mg/dL (2.4-5.1) Magnesium Level 2.4 mg/dL (1.6-2.6) Beta-Hydroxybutyric Acid > 4.500 mmol/L (< 0.4) Serum Osmolality 369 mOsm/kg (278-298) Other Laboratory Tests 05/11/25 10:26 Brief Hx & Hospital Course: 19-year-old young female with a known history of insulin-dependent diabetes mellitus type 1 presented to the hospital with a intractable nausea and vomiting found to have a ketoacidosis. Patient was eventually admitted started on aggressive IV hydration and insulin drip. Patient's metabolic acidosis resolved. Patient is currently tolerating diet and stable to be discharged with a close follow up as an outpatient with the PCP. Patient's has a elevated white count but blood cultures are negative to date. Elevated white count was thought secondary to severe dehydration and DKA. Condition at Discharge: Stable Final Diagnosis/Problems List 19-year-old young female with a known history of insulin-dependent diabetes mellitus type 1 presented to the hospital with a intractable nausea and vomiting found to have 1. Intractable nausea and vomiting secondary to diabetic ketoacidosis 2. Diabetic ketoacidosis 3. Type 1 diabetes mellitus 4. Metabolic acidosis secondary to DKA 5. Acute kidney injury suspected secondary to vasomotor nephropathy 6. Elevated leukocytosis likely reactive secondary to severe dehydration Discharge Disposition: Home SNF Discharge Will this Physician continue t: No Discharge Instruct/Medications Diet: Consistent carbohydrate Diet comment: Two thousand ADA diet Activity: No Restrictions, As Tolerated Follow Up/Referral: Follow up with the PCP in 1-2 weeks Medications: Resume home medications including insulin Lantus. Scheduled Insulin Glargine (Basaglar Kwikpen), 30 UNIT SC HS Insulin Glargine (Basaglar Kwikpen), 30 UNIT SC QPM Insulin Lispro (Humalog Kwikpen), 100 UNIT SC TIDWM Discontinued Medications Doxycycline Hyclate (Doxycycline Hyclate), 1 TAB PO BID Discharge Statement: "Patient was advised to return to the ER or call 911 if any headaches, dizziness, shortness of breath, chest pain, abdominal pain, bleeding, fevers, or worsening of medical condition. Patient was counseled about treatment plan, medications, possible side effects, patientverbalized understanding. All questions were answered to the best of my ability. This discharge took greater then 30 minutes in planning, reviewing documentation, counseling the patient, and discussing with other team members." ASSESSMENT ASSESSMENT Assessment 19-year-old young female with a known history of insulin-dependent diabetes mellitus type 1 presented to the hospital with a intractable nausea and vomiting found to have 1. Intractable nausea and vomiting secondary to diabetic ketoacidosis 2. Diabetic ketoacidosis 3. Type 1 diabetes mellitus 4. Metabolic acidosis secondary to DKA 5. Acute kidney injury suspected secondary to vasomotor nephropathy 6. Elevated leukocytosis likely reactive secondary to severe dehydration Date of Service: May 12, 2025 Billing Provider: STACI MORENO MD Common Visit Codes: 00258-TZW/OBS DISCH DAY >30min STACI MORENO MD May 12, 2025 16:29
--- NOTE | 2025-05-13 07:52 | ECG ---
[facility] Test Date: 2025-05-11 Test Time: 08:57:26 Pat Name: [facility] [place] Gender: F Instructional Specialist: darvin : 2005 Requested By: STACI MORENO Order Number: [id number] Reading MD: Aristeo Morel Measurements Intervals [place] Rate: 108 P: 54 UT: 127 QRS: 75 QRSD: 80 T: -6 QT: 339 QTc: 455 Interpretive Statements Sinus tachycardia Borderline T wave abnormalities Electronically Signed On 05-13-2025 18:11:58 PDT by Aristeo Morel Please click the below link to view image of tracing.
== END 2025-05-12 18:30 | disposition home or self-care (01) | DRG 420 ==
LOC: ER 04:10 → OVERFLOW 09:35 → TELE-WESTW 05-10 16:13
PROVIDERS: ADMIT Internal Medicine; ATTEND Internal Medicine
DX: E10.10 Type 1 diabetes mellitus with ketoacidosis without coma (principal); N17.0 Acute kidney failure with tubular necrosis; E86.0 Dehydration; D72.829 Elevated white blood cell count, unspecified; Z79.4 Long term (current) use of insulin; Z82.5 Family history of asthma and other chronic lower respiratory diseases; Z82.49 Family history of ischemic heart disease and other diseases of the circulatory system
CPT/HCPCS: 36415; 36600; 71045; 80048; 80053; 81001; 82010; 82805; 82962; 83735; 83930; 84100; 85007; 85025; 85027; 87040; 93005; 96361; 96365; 96375; 99291; G0378; J1815; J2405; J2470